=== PATIENT | male | born 1940 | race Asian ===

== ENCOUNTER 2019-04-30 12:23 | Emergency (ER) | payer OTHER ==
[~2019-04-30] VITALS: Ht 167.6 cm; Wt 88.5 kg
[2019-04-30] MEDS ORDERED: TETANUS-DIPTH-ACEL PERTUSSIS 0.5ML SYRG IM ONE (12:30)
[2019-04-30] MEDS ORDERED: HYDROmorphone HCL 2 MG/ML VL ONE (12:59)
[2019-04-30] MEDS ORDERED: ONDANSETRON HCL 4 MG/2 ML VIAL ONE (12:59)
[2019-04-30] MEDS ORDERED: ceFAZolin 1GM/50ML 50 ML IV ONE (13:00)
[2019-04-30] MEDS ORDERED: ONDANSETRON HCL 4 MG/2 ML VIAL IV ONE (13:00)
[2019-04-30] MEDS ORDERED: HYDROmorphone HCL 2 MG/ML VL IV ONE (13:00)
[2019-04-30 14:35] VITALS: BP 160/89
== END 2019-04-30 15:32 | disposition home or self-care (01) ==
LOC: EDBD 12:23 → ER 12:25
DX: S01.01XA Laceration without foreign body of scalp, initial encounter (principal); S51.811A Laceration without foreign body of right forearm, initial encounter; S51.812A Laceration without foreign body of left forearm, initial encounter; I10 Essential (primary) hypertension; E11.9 Type 2 diabetes mellitus without complications; W54.0XXA Bitten by dog, initial encounter; Y93.89 Activity, other specified; Y92.89 Other specified places as the place of occurrence of the external cause; Y99.8 Other external cause status
CPT/HCPCS: 70450; 73090; 90471; 90715; 96365; 96375; 99284; J0690; J1170; J2405

== ENCOUNTER 2022-06-21 14:43 | Inpatient (IN) | payer OTHER, MEDICAID ==
[~2022-06-21] VITALS: Ht 160 cm; Wt 90.0 kg
[2022-06-21 15:42] LABS: Hematocrit 46.5 % (41.0-53.0); Hemoglobin 15.6 g/dL (13.5-17.5); Mean Corpuscular Hgb Conc. 33.6 g/dL (32.0-36.0); Mean Corpuscular Volume 98.1 fL (80.0-100.0); Red Blood Cells 4.74 10^6/uL (4.5-5.90); Red Cell Distribution Width 14.6 % (11.8-14.3); White Blood Cell 19.8 10^3/uL (4.4-10.8)
[2022-06-21 15:51] LABS: Basophils % (manual) 0 (0.0-2.0); Blast Cells 0; Metamyelocytes % 0; Myelocytes % 0; Promyelocytes % 0; Reactive Lymphocytes 0
[2022-06-21 15:53] LABS: Urine Bacteria FEW /hpf (None Seen); Urine Blood 2+ /uL (Negative); Urine Specific Gravity 1.012 (1.001-1.035); Urine WBC 2201 /hpf (0 - 3); Urine WBC Clumps PRESENT /hpf (None Seen)
[2022-06-21 16:08] LABS: Albumin 3.3 g/dL (3.4-5.0); Calcium 8.5 mg/dL (8.5-10.1); Potassium 4.3 mmol/L (3.5-5.1)
[2022-06-21 16:12] LABS: Bilirubin, Total 0.5 mg/dL (0.2-1.0); Total Protein 8.4 g/dL (6.4-8.2)
[2022-06-21] MEDS ORDERED: LACTATED RINGER'S 1,000 ML IV ONE (16:30)
[2022-06-21] MEDS ORDERED: cefTRIAXone 1GM/50ML D5W 50 ML IV ONE (16:30)
[2022-06-21 16:40] LABS: Band Neutrophils % (manual) 4; Eosinophils % (manual) 1 (0-7); Lymphocytes % (manual) 9 (10.0-50.0); Monocytes % (manual) 5 (0-12)
[2022-06-21] MEDS ORDERED: MORPHINE SULFATE INJ 2 MG/ml SYRG IV PRN (18:45)
[2022-06-21] MEDS ORDERED: NITROGLYCERIN 0.4 MG SL TAB SL PRN (18:45)
[2022-06-21] MEDS ORDERED: DEXTROSE (50%) 50ML SYRG IV PRN (18:45)
[2022-06-21 19:32] LABS: Cholesterol 162 mg/dL (< 200); Triglycerides 165 mg/dL (< 150)
[2022-06-21] MEDS: SODIUM CHLORIDE 0.9% 1,000 ML IV SCH (19:35)
[2022-06-21 19:36] LABS: HDL Cholesterol 53 mg/dL (40-59); LDL Cholesterol 85 mg/dL (< 100)
[2022-06-21] MEDS: InsuLIN REG 1unit/0.01ml Soln (100units/ml) SC SCH (22:00)
[2022-06-21] MEDS: ACCU-CHEK COMFORT CURVE STRIP VI SCH (22:18)
[2022-06-21] MEDS: HEPARIN SODIUM (PORCINE) 5000 UNITS/ML 1ML VIAL SC SCH (22:22)
[2022-06-22] MEDS: SODIUM CHLORIDE 0.9% 1,000 ML IV SCH ×3 (02:56→16:26)
[2022-06-22] MEDS: ACCU-CHEK COMFORT CURVE STRIP VI SCH ×4 (06:43→22:14)
[2022-06-22] MEDS: InsuLIN REG 1unit/0.01ml Soln (100units/ml) SC SCH ×4 (06:45→22:00)
[2022-06-22 09:06] LABS: Hematocrit 41.5 % (41.0-53.0); Hemoglobin 14.5 g/dL (13.5-17.5); Mean Corpuscular Hemoglobin 33.3 pg (28.0-32.0); Mean Corpuscular Volume 95.3 fL (80.0-100.0); Red Blood Cells 4.36 10^6/uL (4.5-5.90); Red Cell Distribution Width 14.9 % (11.8-14.3); White Blood Cell 12.9 10^3/uL (4.4-10.8)
[2022-06-22 09:18] LABS: Band Neutrophils % (manual) 0; Basophils % (manual) 0 (0.0-2.0); Blast Cells 0; Eosinophils % (manual) 0 (0-7); Metamyelocytes % 0; Myelocytes % 0; Promyelocytes % 0; Reactive Lymphocytes 0
[2022-06-22 09:19] LABS: Albumin 2.9 g/dL (3.4-5.0); BUN/Creatinine Ratio 18.6; Bilirubin, Total 0.4 mg/dL (0.2-1.0); Calcium 7.9 mg/dL (8.5-10.1); Potassium 4.5 mmol/L (3.5-5.1); Total Protein 7.3 g/dL (6.4-8.2)
[2022-06-22] MEDS: HEPARIN SODIUM (PORCINE) 5000 UNITS/ML 1ML VIAL SC SCH ×2 (09:23→22:17)
[2022-06-22] MEDS: cefTRIAXone 1GM/50ML D5W 50 ML IV SCH (09:25)
[2022-06-22 11:20] LABS: Lymphocytes % (manual) 16 (10.0-50.0); Monocytes % (manual) 7 (0-12)
[2022-06-22] MEDS ORDERED: SENNA 8.6 MG TAB PO PRN (14:30)
[2022-06-22] MEDS ORDERED: SENNA 8.6 MG TAB PO ONE (14:30)
[2022-06-23] VITALS (7 sets, daily range): BP systolic 102–166; BP diastolic 50–65
[2022-06-23] MEDS ORDERED: INSLANTI SC (05:00)
[2022-06-23] MEDS ORDERED: VALS160T82 OR (05:00)
[2022-06-23] MEDS ORDERED: ALLO300T2 PO (05:00)
[2022-06-23] MEDS ORDERED: METO-158 PO (05:00)
[2022-06-23] MEDS ORDERED: AMLO-496 PO (05:00)
[2022-06-23] MEDS ORDERED: PIO30T GT (05:00)
[2022-06-23] MEDS ORDERED: SIMV-13 PO (05:00)
[2022-06-23] MEDS: SODIUM CHLORIDE 0.9% 1,000 ML IV SCH ×2 (05:17→16:59)
[2022-06-23 06:32] LABS: Hematocrit 37.5 % (41.0-53.0); Hemoglobin 12.9 g/dL (13.5-17.5); Mean Corpuscular Hemoglobin 33.2 pg (28.0-32.0); Mean Corpuscular Hgb Conc. 34.3 g/dL (32.0-36.0); Mean Corpuscular Volume 96.8 fL (80.0-100.0); Red Blood Cells 3.87 10^6/uL (4.5-5.90); Red Cell Distribution Width 14.4 % (11.8-14.3); White Blood Cell 13.3 10^3/uL (4.4-10.8)
[2022-06-23 06:47] LABS: Band Neutrophils % (manual) 0; Basophils % (manual) 0 (0.0-2.0); Blast Cells 0; Eosinophils % (manual) 0 (0-7); Metamyelocytes % 0; Myelocytes % 0; Promyelocytes % 0; Reactive Lymphocytes 0
[2022-06-23 06:48] LABS: Anion Gap 7 (5-15); BUN/Creatinine Ratio 18.6; Blood Urea Nitrogen 75 mg/dL (7-18); Calcium 8.4 mg/dL (8.5-10.1); Carbon Dioxide 17 mmol/L (21-32); Chloride 111 mmol/L (98-107); GFR African American 19 mL/min; GFR Non-African American 15 mL/min; Glucose 61 mg/dL (74-106); Potassium 4.6 mmol/L (3.5-5.1); Sodium 135 mmol/L (136-145)
[2022-06-23] MEDS: InsuLIN REG 1unit/0.01ml Soln (100units/ml) SC SCH ×4 (07:00→22:00)
[2022-06-23] MEDS: ACCU-CHEK COMFORT CURVE STRIP VI SCH ×4 (07:03→22:20)
[2022-06-23 08:10] LABS: Lymphocytes % (manual) 10 (10.0-50.0); Monocytes % (manual) 9 (0-12)
[2022-06-23] MEDS: cefTRIAXone 1GM/50ML D5W 50 ML IV SCH (08:41)
[2022-06-23] MEDS: HEPARIN SODIUM (PORCINE) 5000 UNITS/ML 1ML VIAL SC SCH ×2 (08:42→22:27)
[2022-06-23] MEDS ORDERED: METOPROLOL TARTRATE 50 MG TAB PO ONE (12:30)
[2022-06-23] MEDS ORDERED: amLODIPine BESYLATE 5 MG TAB PO ONE (12:30)
[2022-06-23] MEDS ORDERED: VALSARTAN 80 MG TAB PO ONE (12:45)
[2022-06-23] MEDS ORDERED: HCTZ 25 MG TAB PO ONE (12:45)
[2022-06-23] MEDS: METOPROLOL TARTRATE 50 MG TAB PO SCH (22:20)
[2022-06-24 05:10] VITALS: BP 133/64
[2022-06-24] MEDS: ACCU-CHEK COMFORT CURVE STRIP VI SCH ×4 (06:31→21:37)
[2022-06-24] MEDS: InsuLIN REG 1unit/0.01ml Soln (100units/ml) SC SCH ×4 (06:31→21:37)
[2022-06-24 07:28] LABS: BUN/Creatinine Ratio 16.3; Calcium 8.3 mg/dL (8.5-10.1)
[2022-06-24] MEDS: METOPROLOL TARTRATE 50 MG TAB PO SCH ×2 (08:06→21:31)
[2022-06-24] MEDS: cefTRIAXone 1GM/50ML D5W 50 ML IV SCH (08:06)
[2022-06-24] MEDS: amLODIPine BESYLATE 5 MG TAB PO SCH (08:07)
[2022-06-24] MEDS: HEPARIN SODIUM (PORCINE) 5000 UNITS/ML 1ML VIAL SC SCH ×2 (08:13→21:32)
[2022-06-24 09:00] VITALS: BP 149/66
[2022-06-24] MEDS ORDERED: VALSARTAN 80 MG TAB PO SCH (10:00)
[2022-06-24] MEDS ORDERED: HCTZ 25 MG TAB PO SCH (10:00)
[2022-06-24] MEDS ORDERED: LACTULOSE 20Gm/30ML SOLN PO ONE (11:15)
[2022-06-24] MEDS: SODIUM CHLORIDE 0.9% 1,000 ML IV SCH ×2 (11:39→21:37)
[2022-06-24 13:00] VITALS: BP 126/60
[2022-06-24 17:00] VITALS: BP 153/65
[2022-06-24] MEDS: TAMSULOSIN HYDROCHLORIDE 0.4 MG CAP PO SCH (17:03)
[2022-06-24 22:00] VITALS: BP 147/62
[2022-06-25] VITALS (7 sets, daily range): BP systolic 130–157; BP diastolic 51–61
[2022-06-25 05:44] LABS: BUN/Creatinine Ratio 14.2; Calcium 8.8 mg/dL (8.5-10.1)
[2022-06-25] MEDS: ACCU-CHEK COMFORT CURVE STRIP VI SCH ×4 (06:22→21:14)
[2022-06-25] MEDS: InsuLIN REG 1unit/0.01ml Soln (100units/ml) SC SCH ×4 (06:22→21:19)
[2022-06-25] MEDS: cefTRIAXone 1GM/50ML D5W 50 ML IV SCH (10:13)
[2022-06-25] MEDS: SODIUM CHLORIDE 0.9% 1,000 ML IV SCH (10:14)
[2022-06-25] MEDS: METOPROLOL TARTRATE 50 MG TAB PO SCH ×2 (10:14→21:12)
[2022-06-25] MEDS: amLODIPine BESYLATE 5 MG TAB PO SCH (10:14)
[2022-06-25] MEDS: HEPARIN SODIUM (PORCINE) 5000 UNITS/ML 1ML VIAL SC SCH ×2 (10:38→21:20)
[2022-06-25] MEDS ORDERED: ACETAMINOPHEN 325 MG TAB PO PRN (15:15)
[2022-06-25] MEDS ORDERED: MORPHINE SULFATE INJ 2 MG/ml SYRG IV PRN (15:15)
[2022-06-25] MEDS: TAMSULOSIN HYDROCHLORIDE 0.4 MG CAP PO SCH (17:48)
[2022-06-25] MEDS ORDERED: MELATONIN 5 MG TAB PO SCH (22:00)
[2022-06-26] MEDS: SODIUM CHLORIDE 0.9% 1,000 ML IV SCH (00:57)
[2022-06-26 05:00] VITALS: BP 136/63
[2022-06-26 06:03] LABS: BUN/Creatinine Ratio 13.3; Potassium 4.8 mmol/L (3.5-5.1)
[2022-06-26] MEDS: ACCU-CHEK COMFORT CURVE STRIP VI SCH (06:13)
[2022-06-26] MEDS: InsuLIN REG 1unit/0.01ml Soln (100units/ml) SC SCH (06:20)
[2022-06-26 09:00] VITALS: BP 133/67
[2022-06-26] MEDS: cefTRIAXone 1GM/50ML D5W 50 ML IV SCH (09:17)
[2022-06-26] MEDS: amLODIPine BESYLATE 5 MG TAB PO SCH (09:20)
[2022-06-26] MEDS: METOPROLOL TARTRATE 50 MG TAB PO SCH (09:20)
[2022-06-26] MEDS: HEPARIN SODIUM (PORCINE) 5000 UNITS/ML 1ML VIAL SC SCH (09:37)
[2022-06-26 11:12] VITALS: BP 133/67
[2022-06-26 13:00] VITALS: BP 136/68
== END 2022-06-26 13:30 | disposition home or self-care (01) | DRG 683 ==
LOC: ER 14:43 → TELE 18:38 → TELE-CENTR 06-22 23:52
PROVIDERS: ADMIT Registered Nurse; ATTEND Internal Medicine Pulmonary Disease
DX: N17.9 Acute kidney failure, unspecified (principal); E87.1 Hypo-osmolality and hyponatremia; N39.0 Urinary tract infection, site not specified; N13.9 Obstructive and reflux uropathy, unspecified; E11.9 Type 2 diabetes mellitus without complications; N28.1 Cyst of kidney, acquired; M47.816 Spondylosis without myelopathy or radiculopathy, lumbar region; K57.10 Diverticulosis of small intestine without perforation or abscess without bleeding; E78.5 Hyperlipidemia, unspecified; E66.01 Morbid (severe) obesity due to excess calories; K59.00 Constipation, unspecified; Z20.822 Contact with and (suspected) exposure to COVID-19; I10 Essential (primary) hypertension; Z68.35 Body mass index [BMI] 35.0-35.9, adult; Z90.49 Acquired absence of other specified parts of digestive tract; Z83.3 Family history of diabetes mellitus; Z79.4 Long term (current) use of insulin; Z79.899 Other long term (current) drug therapy
CPT/HCPCS: 36415; 36600; 71046; 74176; 76775; 80048; 80053; 80061; 81001; 82570; 82805; 82962; 83036; 83605; 84156; 84300; 84443; 84484; 85007; 85027; 87040; 87086; 87088; 87186; 87426; 93005; 93306; 96365; 97110; 97116; 97163; 97530; G0378; J0696; J1815

== ENCOUNTER 2022-07-02 13:46 | Emergency (ER) | payer OTHER, MEDICAID ==
[~2022-07-02] VITALS: Ht 160 cm; Wt 81.8 kg
[~2022-07-02 13:46] MED LIST: ALLO300T2 PO; AMLO-496 PO; INSLANTI SC; METO-158 PO; PIO30T GT; SIMV-13 PO
[2022-07-02 14:39] VITALS: BP 107/68
== END 2022-07-02 15:30 | disposition home or self-care (01) ==
LOC: ER 13:46
DX: Z46.6 Encounter for fitting and adjustment of urinary device (principal); N19 Unspecified kidney failure; I10 Essential (primary) hypertension; E11.9 Type 2 diabetes mellitus without complications; Z90.49 Acquired absence of other specified parts of digestive tract; Z79.4 Long term (current) use of insulin; Z79.899 Other long term (current) drug therapy

== ENCOUNTER 2022-07-19 10:12 | Inpatient (IN) | payer OTHER, MEDICAID ==
[~2022-07-19] VITALS: Ht 160 cm; Wt 82.0 kg
[2022-07-19 11:16] LABS: Basophils # (auto) 0.2 10 ^3/uL (0-0.2); Basophils % (auto) 1.2 % (0.0-2.0); Eosinophils # (auto) 0.2 10 ^3/uL (0-0.8); Eosinophils % (auto) 1.4 % (0.0-7.0); Hematocrit 37.5 % (41.0-53.0); Hemoglobin 12.7 g/dL (13.5-17.5); Lymphocytes % (auto) 13.4 % (10.0-50.0); Mean Corpuscular Hemoglobin 32.4 pg (28.0-32.0); Mean Corpuscular Hgb Conc. 33.9 g/dL (32.0-36.0); Mean Corpuscular Volume 95.8 fL (80.0-100.0); Monocytes # (auto) 1.3 10 ^3/uL (0-1.3); Monocytes % (auto) 9.1 % (0.0-12.0); Neutrophils # (auto) 10.9 10 ^3/uL (1.6-8.6); Neutrophils % (auto) 74.9 % (37.0-80.0); Nucleated Red Blood Cells % 0.1 %; Red Blood Cells 3.92 10^6/uL (4.5-5.90); Red Cell Distribution Width 14.9 % (11.8-14.3); White Blood Cell 14.6 10^3/uL (4.4-10.8)
[2022-07-19 11:24] LABS: Urine Bacteria FEW /hpf (None Seen); Urine Blood 1+ /uL (Negative); Urine Specific Gravity 1.011 (1.001-1.035); Urine WBC 1080 /hpf (0 - 3); Urine WBC Clumps PRESENT /hpf (None Seen)
[2022-07-19 11:49] LABS: Albumin 3.5 g/dL (3.4-5.0); Potassium 4.9 mmol/L (3.5-5.1)
[2022-07-19 11:53] LABS: BUN/Creatinine Ratio 10.5 (10.0-20.0); Bilirubin, Total 0.5 mg/dL (0.2-1.0); Total Protein 8.6 g/dL (6.4-8.2)
[2022-07-19] MEDS ORDERED: cefTRIAXone 1GM/50ML D5W 50 ML IV ONE (12:00)
[2022-07-19] MEDS ORDERED: SODIUM CHLORIDE 0.9% 500 ML IV ONE (13:45)
[2022-07-19] MEDS ORDERED: ACETAMINOPHEN 325 MG TAB PO PRN (16:45)
[2022-07-19] MEDS ORDERED: NITROGLYCERIN 0.4 MG SL TAB SL PRN (16:45)
[2022-07-19] MEDS ORDERED: ONDANSETRON HCL 4 MG/2 ML VIAL IV PRN (16:45)
[2022-07-19] MEDS ORDERED: DOCUSATE SOD 100 MG CAP PO PRN (16:45)
[2022-07-19] MEDS ORDERED: HYDROcodone-ACET 5/325MG TAB PO PRN (16:45)
[2022-07-19] MEDS ORDERED: DEXTROSE (50%) 50ML SYRG IV PRN (16:45)
[2022-07-19] MEDS: ACCU-CHEK COMFORT CURVE STRIP VI SCH ×2 (17:41→22:22)
[2022-07-19] MEDS: InsuLIN REG 1unit/0.01ml Soln (100units/ml) SC SCH ×2 (17:41→22:22)
[2022-07-19] MEDS ORDERED: MORPHINE SULFATE INJ 2 MG/ml SYRG IV PRN (19:00)
[2022-07-19] MEDS: MORPHINE SULFATE INJ 2 MG/ml SYRG IV PRN (19:05)
[2022-07-19] MEDS: SODIUM CHLORIDE 0.9% 1,000 ML IV SCH (21:20)
[2022-07-19] MEDS: ATORVASTATIN 20 MG TAB PO SCH (22:05)
[2022-07-19] MEDS: METOPROLOL TARTRATE 50 MG TAB PO SCH (22:13)
[2022-07-20 05:23] LABS: Basophils # (auto) 0.1 10 ^3/uL (0-0.2); Basophils % (auto) 1.2 % (0.0-2.0); Eosinophils # (auto) 0.2 10 ^3/uL (0-0.8); Eosinophils % (auto) 1.7 % (0.0-7.0); Hematocrit 33.4 % (41.0-53.0); Hemoglobin 11.3 g/dL (13.5-17.5); Lymphocytes # (auto) 2.6 10 ^3/uL (0.4-5.4); Lymphocytes % (auto) 20.1 % (10.0-50.0); Mean Corpuscular Hemoglobin 32.3 pg (28.0-32.0); Mean Corpuscular Hgb Conc. 33.9 g/dL (32.0-36.0); Mean Corpuscular Volume 95.1 fL (80.0-100.0); Monocytes # (auto) 1.6 10 ^3/uL (0-1.3); Monocytes % (auto) 12.6 % (0.0-12.0); Neutrophils # (auto) 8.3 10 ^3/uL (1.6-8.6); Neutrophils % (auto) 64.4 % (37.0-80.0); Nucleated Red Blood Cells % 0.1 %; Red Blood Cells 3.51 10^6/uL (4.5-5.90); Red Cell Distribution Width 14.8 % (11.8-14.3); White Blood Cell 12.8 10^3/uL (4.4-10.8)
[2022-07-20 05:47] LABS: Albumin 3.1 g/dL (3.4-5.0); Calcium 8.9 mg/dL (8.5-10.1); Potassium 4.7 mmol/L (3.5-5.1)
[2022-07-20 05:52] LABS: BUN/Creatinine Ratio 10.7 (10.0-20.0); Bilirubin, Total 0.5 mg/dL (0.2-1.0); Total Protein 7.8 g/dL (6.4-8.2)
[2022-07-20] MEDS: InsuLIN REG 1unit/0.01ml Soln (100units/ml) SC SCH ×4 (07:00→22:00)
[2022-07-20] MEDS: ACCU-CHEK COMFORT CURVE STRIP VI SCH ×4 (07:26→22:34)
[2022-07-20] MEDS: MORPHINE SULFATE INJ 2 MG/ml SYRG IV PRN (08:20)
[2022-07-20] MEDS: cefTRIAXone 1GM/50ML D5W 50 ML IV SCH (09:03)
[2022-07-20] MEDS ORDERED: PANTOPRAZOLE 40 MG/10 ML VIAL INJ IV SCH (10:00)
[2022-07-20] MEDS ORDERED: PIOGLITAZONE HYDROCHLORIDE 30 MG TAB PO SCH (10:00)
[2022-07-20] MEDS: METOPROLOL TARTRATE 50 MG TAB PO SCH ×2 (10:02→22:34)
[2022-07-20] MEDS: ALLOPURINOL 300 MG TAB PO SCH (10:03)
[2022-07-20] MEDS: amLODIPine BESYLATE 5 MG TAB PO SCH (10:03)
[2022-07-20] MEDS: SODIUM CHLORIDE 0.9% 1,000 ML IV SCH (13:30)
[2022-07-20] MEDS ORDERED: TAMSULOSIN HYDROCHLORIDE 0.4 MG CAP PO SCH (18:00)
[2022-07-20 22:22] VITALS: BP 113/53
[2022-07-20] MEDS: ATORVASTATIN 20 MG TAB PO SCH (22:34)
[2022-07-21 01:20] LABS: Hepatitis B Surface Antibody Positive (Negative)
[2022-07-21 05:00] VITALS: BP 106/42
[2022-07-21] MEDS: SODIUM CHLORIDE 0.9% 1,000 ML IV SCH (05:24)
[2022-07-21] MEDS: ACCU-CHEK COMFORT CURVE STRIP VI SCH ×2 (06:16→12:11)
[2022-07-21] MEDS: InsuLIN REG 1unit/0.01ml Soln (100units/ml) SC SCH ×2 (06:19→12:13)
[2022-07-21 07:10] LABS: Basophils # (auto) 0.1 10 ^3/uL (0-0.2); Basophils % (auto) 0.8 % (0.0-2.0); Eosinophils # (auto) 0.4 10 ^3/uL (0-0.8); Hematocrit 31.4 % (41.0-53.0); Hemoglobin 11.1 g/dL (13.5-17.5); Lymphocytes # (auto) 1.9 10 ^3/uL (0.4-5.4); Lymphocytes % (auto) 17.7 % (10.0-50.0); Mean Corpuscular Hgb Conc. 35.2 g/dL (32.0-36.0); Mean Corpuscular Volume 93.8 fL (80.0-100.0); Monocytes # (auto) 1.2 10 ^3/uL (0-1.3); Neutrophils # (auto) 7.1 10 ^3/uL (1.6-8.6); Neutrophils % (auto) 66.5 % (37.0-80.0); Red Blood Cells 3.35 10^6/uL (4.5-5.90); Red Cell Distribution Width 14.7 % (11.8-14.3); White Blood Cell 10.7 10^3/uL (4.4-10.8)
[2022-07-21 07:15] LABS: BUN/Creatinine Ratio 10.9 (10.0-20.0); Calcium 8.7 mg/dL (8.5-10.1); Magnesium 2.3 mg/dL (1.6-2.6); Phosphorus 4.1 mg/dL (2.5-4.90)
[2022-07-21 08:00] VITALS: BP 119/56
[2022-07-21 08:29] VITALS: BP 119/56
[2022-07-21] MEDS: cefTRIAXone 1GM/50ML D5W 50 ML IV SCH (08:54)
[2022-07-21] MEDS: ALLOPURINOL 300 MG TAB PO SCH (08:54)
[2022-07-21] MEDS: METOPROLOL TARTRATE 50 MG TAB PO SCH (08:55)
[2022-07-21] MEDS: amLODIPine BESYLATE 5 MG TAB PO SCH (08:55)
[2022-07-21 12:43] VITALS: BP 114/52
[2022-07-21] MEDS ORDERED: CIPR-173 PO (14:15)
[2022-07-21] MEDS ORDERED: TAM04C PO (14:15)
[2022-07-21 15:03] VITALS: BP 114/52
== END 2022-07-21 16:29 | disposition home or self-care (01) | DRG 690 ==
LOC: ER 10:12 → TELE 16:51 → TELE-WESTW 07-20 20:32
PROVIDERS: ADMIT Nurse Practitioner Family; ATTEND Internal Medicine
DX: N10 Acute pyelonephritis (principal); E87.1 Hypo-osmolality and hyponatremia; I12.9 Hypertensive chronic kidney disease with stage 1 through stage 4 chronic kidney disease, or unspecified chronic kidney disease; N18.4 Chronic kidney disease, stage 4 (severe); R33.9 Retention of urine, unspecified; E11.22 Type 2 diabetes mellitus with diabetic chronic kidney disease; M19.90 Unspecified osteoarthritis, unspecified site; Z20.822 Contact with and (suspected) exposure to COVID-19; N40.0 Benign prostatic hyperplasia without lower urinary tract symptoms; N28.1 Cyst of kidney, acquired; Z79.4 Long term (current) use of insulin; Z79.899 Other long term (current) drug therapy; Z90.49 Acquired absence of other specified parts of digestive tract; Z83.3 Family history of diabetes mellitus; Z87.440 Personal history of urinary (tract) infections; R21 Rash and other nonspecific skin eruption; N17.0 Acute kidney failure with tubular necrosis
CPT/HCPCS: 36415; 76775; 80048; 80053; 81001; 82306; 82962; 83605; 83735; 83880; 84100; 85025; 86703; 86706; 86803; 87040; 87081; 87086; 87088; 87186; 87340; 87426; C9113; G0378; J0696; J1815; J2405

== ENCOUNTER 2024-07-26 03:28 | Inpatient (IN) | payer OTHER, MEDICAID ==
[~2024-07-26] VITALS: Ht 160 cm; Wt 84.6 kg
[~2024-07-26 03:28] MED LIST changes: -AMLO-496 PO; +AMLO1TAB23 PO; +CIPR-173 PO; -SIMV-13 PO; +SIMV40TA18 PO; +TAMS-35 PO
--- NOTE | 2024-07-26 03:47 | ED.PDOC ---
GI ASSESSMENT HPI Comments 83-year-old male brought in by EMS presents with a chief complaint of abdominal pain. Patient states that his abdomen pain is localized diffusely, radiates to his back, and down to his rectum. Patient mentions that his pain is sharp in sensation, rates his pain a 8/10. Patient denies any nausea, vomiting, or diarrhea. Patient recently had a colonoscopy and it was "abnormal", awaiting further testing at this time. Chief Complaint: Abdominal Pain Time Seen by MD: 03:36 Primary Care Provider: BRAN Andujar Notes: Medications, Allergies Allergies: Coded Allergies: NO KNOWN ALLERGIES (Unverified , 04/30/19) Home Meds Active Scripts Ciprofloxacin Hcl (Cipro) 500 Mg Tab, 1 TAB PO BID, #14 TAB Prov:PHILLIP SCHWARZ MD 07/21/22 Tamsulosin Hcl (Flomax) 0.4 Mg Cap, 0.4 MG PO QPM for 30 Days, #30 CAP Prov:PHILLIP SCHWARZ MD 07/21/22 Reported Medications Insulin Glargine (Lantus) 100 Unit/Ml Inj, 100 UNIT SC DAILY, INJ 06/23/22 Simvastatin (Simvastatin) 40 Mg Tab, 40 MG PO DAILY for 30 Days 06/23/22 Amlodipine Besylate (Amlodipine Besylate) 10 Mg Tab, 1 TAB PO DAILY, #30 TAB 5 Refills 06/23/22 Pioglitazone Hydrochloride (ACTOS TABLET) 30 Mg Tb, 30 MG GT DAILY, TAB 06/23/22 Allopurinol (Allopurinol) 300 Mg Tab, 300 MG PO DAILY, TAB 06/23/22 Metoprolol Tartrate (Metoprolol Tartrate) 50 Mg Tab, 50 MG PO BID for 30 Days, MG 06/23/22 Information Source: Patient, Emergency Med Personnel Mode of Arrival: EMS Timing: Weeks Duration: Since onset Prehospital treatment: 12 Lead EKG, Accucheck, Buffet Manager Quality: Sharp Vomitus: None Stool: Normal Severity: Moderate Recent: None Recent Hx of: None Pain Location: Diffuse Associated sign and symptoms: Abdominal Pain Vital Signs Vital Signs Date Time Temp Pulse Resp B/P (MAP) Pulse Ox O2 Delivery O2 Flow Rate FiO2 07/26/24 06:48 63 12 127/56 07/26/24 05:25 97.5 100 97.5 07/26/24 05:25 Room Air* 0 21 Physical Exam General: Awake, alert and oriented. No acute distress. Skin: Skin in warm, dry and intact. Appropriate color for ethnicity. HEENT: The head is normocephalic and atraumatic. Conjunctivae are clear without exudates or hemorrhage. Sclera is non-icteric. EOM are intact. No signs of nystagmus. Eyelids are normal in appearance without swelling or lesions. Oral mucosa is pink and moist Neck: The neck is supple with normal range of motion. No JVD. Cardiac: Heart rate and rhythm are normal. No murmurs, gallops, or rubs are auscultated. Respiratory: No signs of respiratory distress. Lung sounds are clear in all lobes bilaterally without rales, ronchi, or wheezes. Abdominal: Abdomen is soft, right flank tenderness with distention. Bowel sounds are present and normoactive in all four quadrants. Extremities: Upper and lower extremities are atraumatic in appearance without deformity or edema. Neurological: The patient is awake, alert and oriented to person, place, and time with normal speech. Speech is clear. There is no facial asymmetry. Psychiatric: Appropriate mood and affect. Good judgement and insight. Review of Systems: REVIEW OF SYSTEMS: No fever, no chills, or fatigue HEENT: No sore throat, no earache, no congestion, no neck pain. Cardiac: No chest pain. No palpitations. Lungs: No shortness of breath, no cough. GI: No nausea, no vomiting, no diarrhea, positive constipation, positive abdominal pain : No dysuria, frequency, or urgency. No hematuria. Musculoskeletal: Positive back pain Skin: No rash, no itching. Neuro: No headache, no dizziness, no weakness Past Medical History PAST MEDICAL HISTORY: Arthritis, CKF, DM, HTN, UTI'S Surgical History: Cholecystectomy, Hernia Repair Family History Family History: Family hx of DM Social History Smoker: Non-Smoker Alcohol: Denies ETOH Use Drugs: Denies Drug Use Lives In: Home Was a procedure done? Was a procedure done?: No GI differential Dx Differential Diagnosis: Other Other Differential Diagnosis Differential diagnoses considered include: Abdominal aortic aneurysm, [place], esophageal rupture, intestinal obstruction, mesenteric ischemia, perforated viscus or solid organ rupture, CHF with hepatomegaly, pneumonia, abscess, appendicitis, biliary disease, diverticulitis, gastritis, gastroenteritis, hepatitis, hernia, inflammatory bowel disease, pancreatitis, peptic ulcer disease, urinary tract infection, ureteral colic, constipation, GERD, irritable syndrome, abdominal wall pain, nonspecific abdominal pain, herpes zoster. X-Ray, Labs, Meds, VS Vital Signs Date Time Temp Pulse Resp B/P (MAP) Pulse Ox O2 Delivery O2 Flow Rate FiO2 07/26/24 06:48 63 12 127/56 07/26/24 05:29 65 12 132/61 07/26/24 05:25 97.5 65 12 132/61 (84) 100 97.5 07/26/24 05:25 65 12 100 Room Air* 0 21 07/26/24 03:35 98.6 73 16 133/61 (85) 95 98.6 Lab Test 07/26/24 04:15 Range/Units White Blood Count 8.6 4.4-10.8 10^3/uL Red Blood Count 3.70 L 4.5-5.90 10^6/uL Hemoglobin 11.8 L 13.5-17.5 g/dL Hematocrit 35.8 L 41.0-53.0 % Mean Corpuscular Volume 96.6 80.0-100.0 fL Mean Corpuscular Hemoglobin 31.9 28.0-32.0 pg Mean Corpuscular Hemoglobin Concent 33.0 32.0-36.0 g/dL Red Cell Distribution Width 16.0 H 11.8-14.3 % Platelet Count 273 140-450 10^3/uL Mean Platelet Volume 7.4 6.9-10.8 fL Neutrophils (%) (Auto) 50.3 37.0-80.0 % Lymphocytes (%) (Auto) 32.6 10.0-50.0 % Monocytes (%) (Auto) 10.7 0.0-12.0 % Eosinophils (%) (Auto) 5.5 0.0-7.0 % Basophils (%) (Auto) 0.9 0.0-2.0 % Neutrophils # (Auto) 4.3 1.6-8.6 10 ^3/uL Lymphocytes # (Auto) 2.8 0.4-5.4 10 ^3/uL Monocytes # (Auto) 0.9 0-1.3 10 ^3/uL Eosinophils # (Auto) 0.5 0-0.8 10 ^3/uL Basophils # (Auto) 0.1 0-0.2 10 ^3/uL Nucleated Red Blood Cells 0.1 % Sodium Level 130 L 136-145 mmol/L Potassium Level 3.9 3.5-5.1 mmol/L Chloride Level 96 L 98-107 mmol/L Carbon Dioxide Level 24 20-31 mmol/L Anion Gap 10 5-15 Blood Urea Nitrogen 52 H 9-23 mg/dL Creatinine 3.85 H 0.700-1.30 mg/dL Glomerular Filtration Rate Calc 15 >90 mL/min BUN/Creatinine Ratio 13.5 10.0-20.0 Serum Glucose 91 74-106 mg/dL Lactic Acid Level 1.3 0.4-2.0 mmol/L Calcium Level 9.9 8.7-10.4 mg/dL Total Bilirubin 0.4 0.2-1.0 mg/dL Aspartate Amino Transferase (AST) 14 13-40 U/L Alanine Aminotransferase (ALT) < 9 7-40 U/L Alkaline Phosphatase 79 46-116 U/L B-Type Natriuretic Peptide 31.11 0-100 pg/mL Total Protein 7.9 5.7-8.2 g/dL Albumin 4.2 3.2-4.8 g/dL Lipase 73 H 12-53 U/L Current Medications Medications (Trade) Dose Ordered Sig/Joe Route Start Time Stop Time Status Last Admin Morphine Sulfate 2 mg ONCE ONCE IV 07/26/24 03:45 07/26/24 03:46 DC 07/26/24 05:29 Sodium Chloride 1,000 ml @ 130 mls/hr [id number] ONCE IV 07/26/24 06:00 07/26/24 13:41 07/26/24 06:31 EXAM: XY CHEST XRAY 1 VIEW HISTORY: SOB COMPARISON: XY CHEST XRAY 1 VIEW on DOS: 07/26/24 TECHNIQUE: Portable upright AP view of the chest was performed. FINDINGS: There is cardiomegaly with interstitial pulmonary edema, increased versus that seen on the previous chest x-ray. No pneumothorax or consolidative infiltrates. There are degenerative changes of the thoracic spine and bilateral shoulders. IMPRESSION: Cardiomegaly with interstitial pulmonary edema consistent with CHF exacerbation. : CT Abdomen and Pelvis Without Intravenous Contrast CLINICAL INDICATION: Right flank pain, abdominal distention, constipation TECHNIQUE: Axial computed tomography images of the abdomen and pelvis without intravenous contrast. This CT exam was performed using one or more of the following dose reduction techniques: automated exposure control, adjustment of the mA and/or kV according to patient size, and/or use of iterative reconstruction technique. CONTRAST: COMPARISON: CT CT AB PEL WO CON-NO ORAL OR IV on DOS: 06/21/22 FINDINGS: LUNG BASES: Unremarkable. No mass. No consolidation. MEDIASTINUM: Small esophageal hiatal hernia. ABDOMEN: LIVER: 4.4 cm simple hepatic cyst. GALLBLADDER AND BILE DUCTS: Gallbladder is surgically absent. No ductal dilation. PANCREAS: Unremarkable. No ductal dilation. SPLEEN: Unremarkable. No splenomegaly. ADRENALS: Unremarkable. No mass. KIDNEYS AND URETERS: Apparent striated enhancement of the kidneys, bilaterally concerning for pyelonephritis. Clinical correlation is recommended. Punctate right nephrolithiasis without hydronephrosis. Bilateral renal cysts. STOMACH AND BOWEL: Unremarkable. No obstruction. No mucosal thickening. PELVIS: APPENDIX: No findings to suggest acute appendicitis. BLADDER: Bladder wall thickening which may be due to the decompressed state of the bladder or due to cystitis. No stones. REPRODUCTIVE: Unremarkable as visualized. ABDOMEN and PELVIS: INTRAPERITONEAL SPACE: Unremarkable. No free air. No significant fluid collection. BONES/JOINTS: No acute fracture. No dislocation. SOFT TISSUES: Umbilical hernia containing fat. Left inguinal hernia. VASCULATURE: Scattered calcified atherosclerotic disease of aorta. No abdominal aortic aneurysm. LYMPH NODES: Unremarkable. No enlarged lymph nodes. OTHER FINDINGS: . IMPRESSION: 1. Apparent striated enhancement of the kidneys, bilaterally concerning for pyelonephritis. Clinical correlation is recommended. 2. Bladder wall thickening which may be due to the decompressed state of the bladder or due to cystitis. 3. Small esophageal hiatal hernia. 4. Umbilical hernia containing fat. 5. Left inguinal hernia. Patient alert. Complaining of abdominal pain. Kidney function elevated. Vitals stable. Lipase elevated. Establish intravenous access. Was given fluids. Was given pain medication. WBC within normal limits. Continues to have abdominal pain. Possible colitis. Chest x-ray reviewed does shows CHF. Will be careful giving Lasix. CT scan of the abdomen does show possible pyelonephritis. Was given Rocephin. Was given Flagyl. Explained to the patient. Continue monitoring. Time of Reevaluation: 04:06 Reevaluation 1ST: Unchanged Patient Education/Counseling: Need For Follow Up Family Education/Counseling: No Family Present Departure 1 Departure Time of Disposition: 07:16 Impression: Primary Impression: CHF exacerbation Qualified Codes: I50.43 - Acute on chronic combined systolic (congestive) and diastolic (congestive) heart failure Additional Impressions: Acute pancreatitis Qualified Codes: K85.90 - Acute pancreatitis without necrosis or infection, unspecified Complicated UTI (urinary tract infection) Disposition: ADMITTED INPATIENT Admit to: Med Surg Condition: Guarded Critical Care Note Critical Care Time?: No Stability Stability form required: No Heart Score Heart Score: Heart Score Response (Comments) Value History N/A 0 EKG N/A 0 Age N/A 0 Risk Factors N/A 0 Troponin N/A 0 Total 0 I personally scribed for SAKINA COREAS MD ([email or web address]) on 07/26/24 at 03:47. Electronically submitted by Kenrick Thakkar ([email or web address]). I personally scribed for DARRYL GALLOWAY MD ([email or web address]) on 07/26/24 at 07:37. Electronically submitted by Gilbert Villa ([email or web address]). SAKINA COREAS MD Jul 26, 2024 03:47 DARRYL GALLOWAY MD Jul 26, 2024 07:17
[2024-07-26 04:34] LABS: Basophils # (auto) 0.1 10 ^3/uL (0-0.2); Basophils % (auto) 0.9 % (0.0-2.0); Eosinophils # (auto) 0.5 10 ^3/uL (0-0.8); Eosinophils % (auto) 5.5 % (0.0-7.0); Hematocrit 35.8 % (41.0-53.0); Hemoglobin 11.8 g/dL (13.5-17.5); Lymphocytes # (auto) 2.8 10 ^3/uL (0.4-5.4); Lymphocytes % (auto) 32.6 % (10.0-50.0); Mean Corpuscular Hemoglobin 31.9 pg (28.0-32.0); Mean Corpuscular Volume 96.6 fL (80.0-100.0); Monocytes # (auto) 0.9 10 ^3/uL (0-1.3); Monocytes % (auto) 10.7 % (0.0-12.0); Neutrophils # (auto) 4.3 10 ^3/uL (1.6-8.6); Neutrophils % (auto) 50.3 % (37.0-80.0); Nucleated Red Blood Cells % 0.1 %; Platelet Count (auto) 273 10^3/uL (140-450); White Blood Cell 8.6 10^3/uL (4.4-10.8)
[2024-07-26] MEDS: IOHEXOL 350 MG/ML 100ML IJ ONE (04:49)
[2024-07-26 04:55] LABS: Albumin 4.2 g/dL (3.2-4.8); Alkaline Phosphatase 79 U/L (46-116); Anion Gap 10 (5-15); Aspartate Aminotransferase 14 U/L (13-40); BUN/Creatinine Ratio 13.5 (10.0-20.0); Calcium 9.9 mg/dL (8.7-10.4); Carbon Dioxide 24 mmol/L (20-31); Glucose 91 mg/dL (74-106); Potassium 3.9 mmol/L (3.5-5.1); Total Protein 7.9 g/dL (5.7-8.2)
[2024-07-26 04:56] LABS: Bilirubin, Total 0.4 mg/dL (0.2-1.0)
[2024-07-26 05:00] LABS: Alanine Aminotransferase < 9 U/L (7-40); Blood Urea Nitrogen 52 mg/dL (9-23); Chloride 96 mmol/L (98-107); Lipase 73 U/L (12-53); Sodium 130 mmol/L (136-145)
[2024-07-26 05:25] VITALS: PULSE 65; RESP 12; O2SAT 100
[2024-07-26] MEDS: MORPHINE SULFATE INJ 2 MG/ml SYRG IV ONE (05:29)
--- NOTE | 2024-07-26 06:05 | DVH ---
EXAM: XY CHEST XRAY 1 VIEW HISTORY: SOB COMPARISON: XY CHEST XRAY 1 VIEW on DOS: 07/26/24 TECHNIQUE: Portable upright AP view of the chest was performed. FINDINGS: There is cardiomegaly with interstitial pulmonary edema, increased versus that seen on the previous c hest x-ray. No pneumothorax or consolidative infiltrates. There are degenerative changes of the thora cic spine and bilateral shoulders. IMPRESSION: Cardiomegaly with interstitial pulmonary edema consistent with CHF exacerbation.
--- NOTE | 2024-07-26 06:08 | DVH ---
EXAM: CT Abdomen and Pelvis Without Intravenous Contrast CLINICAL INDICATION: Right flank pain, abdominal distention, constipation TECHNIQUE: Axial computed tomography images of the abdomen and pelvis without intravenous contrast. This CT exam was performed using one or more of the following dose reduction techniques: automated exposure control, adjustment of the mA and/or kV according to patient size, and/or use of iterative r econstruction technique. CONTRAST: COMPARISON: CT CT AB PEL WO CON-NO ORAL OR IV on DOS: 06/21/22 FINDINGS: LUNG BASES: Unremarkable. No mass. No consolidation. MEDIASTINUM: Small esophageal hiatal hernia. ABDOMEN: LIVER: 4.4 cm simple hepatic cyst. GALLBLADDER AND BILE DUCTS: Gallbladder is surgically absent. No ductal dilation. PANCREAS: Unremarkable. No ductal dilation. SPLEEN: Unremarkable. No splenomegaly. ADRENALS: Unremarkable. No mass. KIDNEYS AND URETERS: Apparent striated enhancement of the kidneys, bilaterally concerning for pyelo nephritis. Clinical correlation is recommended. Punctate right nephrolithiasis without hydronephrosi s. Bilateral renal cysts. STOMACH AND BOWEL: Unremarkable. No obstruction. No mucosal thickening. PELVIS: APPENDIX: No findings to suggest acute appendicitis. BLADDER: Bladder wall thickening which may be due to the decompressed state of the bladder or due t o cystitis. No stones. REPRODUCTIVE: Unremarkable as visualized. ABDOMEN and PELVIS: INTRAPERITONEAL SPACE: Unremarkable. No free air. No significant fluid collection. BONES/JOINTS: No acute fracture. No dislocation. SOFT TISSUES: Umbilical hernia containing fat. Left inguinal hernia. VASCULATURE: Scattered calcified atherosclerotic disease of aorta. No abdominal aortic aneurysm. LYMPH NODES: Unremarkable. No enlarged lymph nodes. OTHER FINDINGS: . IMPRESSION: 1. Apparent striated enhancement of the kidneys, bilaterally concerning for pyelonephritis. Clinical correlation is recommended. 2. Bladder wall thickening which may be due to the decompressed state of the bladder or due to cysti tis. 3. Small esophageal hiatal hernia. 4. Umbilical hernia containing fat. 5. Left inguinal hernia.
[2024-07-26] MEDS: SODIUM CHLORIDE 0.9% 1,000 ML IV ONE (06:31)
--- NOTE | 2024-07-26 08:13 | DVHHP2 ---
History of Present Illness Reason for Visit: Abdominal pain History of Present Illness Camden Arriaga is an 83-year-old male with past medical history of hypertension, diabetes type 2, CKD, arthritis, frequent UTIs, osteoarthritis, cholecystectomy, and hernia repair who presents to the ED with abdominal pain and weakness. Clare at bedside with Cinthya daughter as well. Family reported that patient has not been walking for the last 2 years due to his arthritis. Also that patient followed up with his PCP 4 months ago and has been having urinary incontinence in his currently in diapers because he is unable to determine when he is voiding. Patient also complaining of right-sided flank pain. Abdomen is soft and distended. Patient denies any chest pain, shortness of breath, fever, chills, nausea, vomiting, diarrhea, hematuria, frequency, recent travels, recent ingestion of spoiled food, recent injury or trauma, lightheadedness, or dizziness. Family also reports that patient has been using a wheelchair and not walking. Cardiovascular: HTN Renal/: UTI Endocrine: Diabetes Past Medical History Osteoarthritis Arthritis Past Surgical History: Cholecystectomy, Hernia Repair Smoke: No ALCOHOL: none Drugs: None Domestic Violence: Neg Review of Systems Constitutional: Yes: Weakness Gastrointestinal: Abdominal Pain, Other (Right-sided flank pain) Allergies: Coded Allergies: NO KNOWN ALLERGIES (Unverified , 04/30/19) Exam Vital Signs Vital Signs Date Time Temp Pulse Resp B/P (MAP) Pulse Ox O2 Delivery O2 Flow Rate FiO2 07/26/24 06:48 63 12 127/56 07/26/24 05:25 97.5 100 97.5 07/26/24 05:25 Room Air* 0 21 General Appearance: Alert, Oriented X3, Cooperative, No acute distress HEENT: Atraumatic, PERRLA, EOMI, Mucous membr. moist/pink Respiratory: Clear to auscultation, Normal air movement Cardiovascular: Regular rate, Normal S1, Normal S2, No murmurs Abdominal: Soft Extremities: No clubbing, No cyanosis, No edema, Normal pulses, No tenderness/swelling Skin: No significant lesion Neuro: Normal speech, Normal tone, Sensation intact Psych/Mental Status: Mental status NL Labs/Xrays Labs Test 07/26/24 04:15 Range/Units White Blood Count 8.6 4.4-10.8 10^3/uL Red Blood Count 3.70 L 4.5-5.90 10^6/uL Hemoglobin 11.8 L 13.5-17.5 g/dL Hematocrit 35.8 L 41.0-53.0 % Mean Corpuscular Volume 96.6 80.0-100.0 fL Mean Corpuscular Hemoglobin 31.9 28.0-32.0 pg Mean Corpuscular Hemoglobin Concent 33.0 32.0-36.0 g/dL Red Cell Distribution Width 16.0 H 11.8-14.3 % Platelet Count 273 140-450 10^3/uL Mean Platelet Volume 7.4 6.9-10.8 fL Neutrophils (%) (Auto) 50.3 37.0-80.0 % Lymphocytes (%) (Auto) 32.6 10.0-50.0 % Monocytes (%) (Auto) 10.7 0.0-12.0 % Eosinophils (%) (Auto) 5.5 0.0-7.0 % Basophils (%) (Auto) 0.9 0.0-2.0 % Neutrophils # (Auto) 4.3 1.6-8.6 10 ^3/uL Lymphocytes # (Auto) 2.8 0.4-5.4 10 ^3/uL Monocytes # (Auto) 0.9 0-1.3 10 ^3/uL Eosinophils # (Auto) 0.5 0-0.8 10 ^3/uL Basophils # (Auto) 0.1 0-0.2 10 ^3/uL Nucleated Red Blood Cells 0.1 % Sodium Level 130 L 136-145 mmol/L Potassium Level 3.9 3.5-5.1 mmol/L Chloride Level 96 L 98-107 mmol/L Carbon Dioxide Level 24 20-31 mmol/L Anion Gap 10 5-15 Blood Urea Nitrogen 52 H 9-23 mg/dL Creatinine 3.85 H 0.700-1.30 mg/dL Glomerular Filtration Rate Calc 15 >90 mL/min BUN/Creatinine Ratio 13.5 10.0-20.0 Serum Glucose 91 74-106 mg/dL Lactic Acid Level 1.3 0.4-2.0 mmol/L Calcium Level 9.9 8.7-10.4 mg/dL Total Bilirubin 0.4 0.2-1.0 mg/dL Aspartate Amino Transferase (AST) 14 13-40 U/L Alanine Aminotransferase (ALT) < 9 7-40 U/L Alkaline Phosphatase 79 46-116 U/L B-Type Natriuretic Peptide 31.11 0-100 pg/mL Total Protein 7.9 5.7-8.2 g/dL Albumin 4.2 3.2-4.8 g/dL Lipase 73 H 12-53 U/L INDICATION: flank pain TECHNIQUE: Multiple real-time sonographic images of the kidneys and bladder were obtained. COMPARISON: US KIDNEY on DOS: 07/20/22, US KIDNEY on DOS: 06/22/22 FINDINGS: The right kidney measures 10.4 cm in length, which is normal in size. There is increased echogenicity of the right kidney. No hydronephrosis. Trace right perinephric fluid. There is a right renal cyst measuring 2.6 cm. The left kidney measures 9.0 cm in length, which is normal in size. There is increased echogenicity of the left kidney. No hydronephrosis. No large intraluminal masses are seen in the bladder. IMPRESSION: Echogenic bilateral kidneys suggestive of chronic medical renal disease. No hydronephrosis. Right renal cysts are visualized. Possible debris in the urinary bladder. Correlate with urinalysis. EXAM: XY CHEST XRAY 1 VIEW HISTORY: SOB COMPARISON: XY CHEST XRAY 1 VIEW on DOS: 07/26/24 TECHNIQUE: Portable upright AP view of the chest was performed. FINDINGS: There is cardiomegaly with interstitial pulmonary edema, increased versus that seen on the previous chest x-ray. No pneumothorax or consolidative infiltrates. There are degenerative changes of the thoracic spine and bilateral shoulders. IMPRESSION: Cardiomegaly with interstitial pulmonary edema consistent with CHF exacerbation. EXAM: CT Abdomen and Pelvis Without Intravenous Contrast CLINICAL INDICATION: Right flank pain, abdominal distention, constipation TECHNIQUE: Axial computed tomography images of the abdomen and pelvis without intravenous contrast. This CT exam was performed using one or more of the following dose reduction techniques: automated exposure control, adjustment of the mA and/or kV according to patient size, and/or use of iterative reconstruction technique. CONTRAST: COMPARISON: CT CT AB PEL WO CON-NO ORAL OR IV on DOS: 06/21/22 FINDINGS: LUNG BASES: Unremarkable. No mass. No consolidation. MEDIASTINUM: Small esophageal hiatal hernia. ABDOMEN: LIVER: 4.4 cm simple hepatic cyst. GALLBLADDER AND BILE DUCTS: Gallbladder is surgically absent. No ductal dilation. PANCREAS: Unremarkable. No ductal dilation. SPLEEN: Unremarkable. No splenomegaly. ADRENALS: Unremarkable. No mass. KIDNEYS AND URETERS: Apparent striated enhancement of the kidneys, bilaterally concerning for pyelonephritis. Clinical correlation is recommended. Punctate right nephrolithiasis without hydronephrosis. Bilateral renal cysts. STOMACH AND BOWEL: Unremarkable. No obstruction. No mucosal thickening. PELVIS: APPENDIX: No findings to suggest acute appendicitis. BLADDER: Bladder wall thickening which may be due to the decompressed state of the bladder or due to cystitis. No stones. REPRODUCTIVE: Unremarkable as visualized. ABDOMEN and PELVIS: INTRAPERITONEAL SPACE: Unremarkable. No free air. No significant fluid collection. BONES/JOINTS: No acute fracture. No dislocation. SOFT TISSUES: Umbilical hernia containing fat. Left inguinal hernia. VASCULATURE: Scattered calcified atherosclerotic disease of aorta. No abdominal aortic aneurysm. LYMPH NODES: Unremarkable. No enlarged lymph nodes. OTHER FINDINGS: . IMPRESSION: 1. Apparent striated enhancement of the kidneys, bilaterally concerning for pyelonephritis. Clinical correlation is recommended. 2. Bladder wall thickening which may be due to the decompressed state of the bladder or due to cystitis. 3. Small esophageal hiatal hernia. 4. Umbilical hernia containing fat. 5. Left inguinal hernia. Assessment/Plan Assessment/Plan Assessment Anemia Hyponatremia CATA Intractable abdominal pain Cardiomegaly Acute cystitis probable ESBL Right-sided flank pain probable pyelonephritis Small esophageal hiatal hernia Umbilical hernia containing fat Left inguinal hernia History of hypertension History of diabetes type 2 History of CKD History of arthritis History of frequent UTIs History of osteoarthritis History of cholecystectomy History of hernia repair Plan Admit to med [facility] [place] CT abdomen and pelvis noted IV antibiotics-Flagyl + ceftriaxone changed to ertapenem NS 1 L given ED Antiemetics Pain management Chest x-ray noted BNP Blood cultures Procalcitonin UA Lipase Lactic Ultrasound kidney ordered Last echo on 06/22/2022 EF 65-70% Echo ordered PSA Flomax DVT prophylaxis-Lovenox PUD prophylaxis-famotidine Home medications reconciled Discussed plan of care with patient, patient's spouse, patient's daughter, and nurse Nephro consulted Plan discussed with: Patient, Spouse, Daughter My Orders Orders - DAMI FORD DROSOPHERE OPERATOR Procedure Category Date Status Time Metronidazole Ivpb PHA 07/26/24 Verified Flagyl 14:00 Ceftriaxone Ivpb PHA 07/26/24 Verified Rocephin 09:00 Date of Service: Jul 26, 2024 Billing Provider: DAMI FORD Common Visit Codes: [id number] INP/OBS CARE (HIGH) DAMI FORD Jul 26, 2024 08:13
[2024-07-26] MEDS ORDERED: HYDROcodone-ACET 5/325MG TAB PO PRN (08:15)
[2024-07-26] MEDS ORDERED: ONDANSETRON HCL 4 MG/2 ML VIAL IV PRN (08:15)
[2024-07-26] MEDS ORDERED: DEXTROSE (50%) 50ML SYRG IV PRN (08:15)
[2024-07-26] MEDS: cefTRIAXone 1GM/50ML D5W 50 ML IV ONE (08:45)
[2024-07-26] MEDS: metroNIDAZOLE 500MG/100ML 100 ML IV ONE (09:21)
[2024-07-26] MEDS: ENOXAPARIN SOD 30 MG/0.3 ML SYRINGE SC SCH (10:10)
--- NOTE | 2024-07-26 10:22 | DVHINCON2 ---
Date of service: Jul 26, 2024 Referring Physician MACY FORD Reason for Consultation Acute kidney injury History of Present Illness Patient is a 83-year-old female with past medical history of diabetes mellitus, hypertension, chronic kidney disease stage 4, neurogenic bladder, urinary reten tion and UTI is admitted for abdominal pain that radiates to the back on admission patient found to have elevated BUN creatinine nephrology is consulted for acute kidney injury Past Medical History diabetes mellitus, hypertension, chronic kidney disease stage 4, neurogenic bladder, urinary retention and UTI Allergies: Coded Allergies: NO KNOWN ALLERGIES (Unverified , 04/30/19) Home Meds Active Scripts Ciprofloxacin Hcl (Cipro) 500 Mg Tab, 1 TAB PO BID, #14 TAB Prov:PHILLIP SCHWARZ MD 07/21/22 Tamsulosin Hcl (Flomax) 0.4 Mg Cap, 0.4 MG PO QPM for 30 Days, #30 CAP Prov:PHILLIP SCHWARZ MD 07/21/22 Reported Medications Insulin Glargine (Lantus) 100 Unit/Ml Inj, 100 UNIT SC DAILY, INJ 06/23/22 Simvastatin (Simvastatin) 40 Mg Tab, 40 MG PO DAILY for 30 Days 06/23/22 Amlodipine Besylate (Amlodipine Besylate) 10 Mg Tab, 1 TAB PO DAILY, #30 TAB 5 Refills 06/23/22 Pioglitazone Hydrochloride (ACTOS TABLET) 30 Mg Tb, 30 MG GT DAILY, TAB 06/23/22 Allopurinol (Allopurinol) 300 Mg Tab, 300 MG PO DAILY, TAB 06/23/22 Metoprolol Tartrate (Metoprolol Tartrate) 50 Mg Tab, 50 MG PO BID for 30 Days, MG 06/23/22 Current Medications Current Medications Medications (Trade) Dose Ordered Sig/Joe Route PRN Reason Start Time Stop Time Status Last Admin Metronidazole 100 ml @ 100 mls/hr Q8HR IV 07/26/24 14:00 07/26/24 11:52 DC Ceftriaxone Sodium 50 ml @ 100 mls/hr DAILY@09 IV 07/27/24 09:00 07/26/24 11:52 DC Acetaminophen/ Hydrocodone Bitart ([place] 5/325MG Tab) 1 tab Q4HP PRN PO MODERATE PAIN (4-6 PAIN SCALE) 07/26/24 08:15 Ondansetron HCl (Zofran) 4 mg Q4HP PRN IV NAUSEA / VOMITING 07/26/24 08:15 Enoxaparin Sodium (Lovenox) 30 mg DAILY SC 07/26/24 10:00 07/26/24 10:10 Acetaminophen (Tylenol Tablet) 650 mg Q6HP PRN PO PAIN SCALE 1-3 OR TEMP>100.4 07/26/24 08:15 Morphine Sulfate 2 mg Q4HPRN PRN IV SEVERE PAIN (7-10 PAIN SCALE) 07/26/24 08:15 Diagnostic Test (Pha) (Accu-Chek Comfort Curve T) 1 strip ACHS 07/26/24 11:30 07/26/24 11:46 Insulin Human Regular (InsuLIN R) ACHS SC 07/26/24 11:30 Dextrose 50 ml UD PRN IV Blood Sugar LESS THAN 60 07/26/24 08:15 Sodium Chloride 1,000 ml @ 100 mls/hr Q10H IV 07/26/24 10:30 UNV Ertapenem 0.5 gm/ Sodium Chloride 50 ml @ 100 mls/hr DAILY IV 07/27/24 10:00 UNV Family History: Diabetes mellitus G8 MOTHER H&P Exam Vital Signs/I&O Vital Sign Date Time Temp Pulse Resp B/P (MAP) Pulse Ox O2 Delivery O2 Flow Rate FiO2 07/26/24 10:00 72 14 139/59 (85) 93 07/26/24 08:03 97.4 97.4 07/26/24 08:03 Room Air* 0 21 Labs/Diagnostic Data Labs/Diagnostic Data Laboratory Tests Test 07/26/24 11:43 07/26/24 11:20 07/26/24 04:15 07/26/24 03:14 Range/Units POC Glucose 127 H 70-106 mg/dl Urine Color Colorless Yellow Urine Clarity Turbid H Clear Urine pH 6.0 5.0-9.0 Urine Specific [place] 1.010 1.001-1.035 Urine Protein 1+ H Negative Urine Ketones Negative Negative Urine Blood 1+ H Negative /uL Urine Nitrite 1+ H Negative Urine Bilirubin Negative Negative Urine Urobilinogen Normal Negative mg/dL Urine Leukocyte Esterase 3+ Negative /uL Urine RBC 8 0 - 3 /hpf Urine Microscopic WBC 294 H 0-3 /HPF Urine Squamous Epithelial Cells Few <5 /hpf Urine Bacteria None seen None Seen /hpf Urine Osmolality 209 mOsm/kg Urine Glucose Normal Normal mg/dL White Blood Count 8.6 4.4-10.8 10^3/uL Red Blood Count 3.70 L 4.5-5.90 10^6/uL Hemoglobin 11.8 L 13.5-17.5 g/dL Hematocrit 35.8 L 41.0-53.0 % Mean Corpuscular Volume 96.6 80.0-100.0 fL Mean Corpuscular Hemoglobin 31.9 28.0-32.0 pg Mean Corpuscular Hemoglobin Concent 33.0 32.0-36.0 g/dL Red Cell Distribution Width 16.0 H 11.8-14.3 % Platelet Count 273 140-450 10^3/uL Mean Platelet Volume 7.4 6.9-10.8 fL Neutrophils (%) (Auto) 50.3 37.0-80.0 % Lymphocytes (%) (Auto) 32.6 10.0-50.0 % Monocytes (%) (Auto) 10.7 0.0-12.0 % Eosinophils (%) (Auto) 5.5 0.0-7.0 % Basophils (%) (Auto) 0.9 0.0-2.0 % Neutrophils # (Auto) 4.3 1.6-8.6 10 ^3/uL Lymphocytes # (Auto) 2.8 0.4-5.4 10 ^3/uL Monocytes # (Auto) 0.9 0-1.3 10 ^3/uL Eosinophils # (Auto) 0.5 0-0.8 10 ^3/uL Basophils # (Auto) 0.1 0-0.2 10 ^3/uL Nucleated Red Blood Cells 0.1 % Sodium Level 130 L 136-145 mmol/L Potassium Level 3.9 3.5-5.1 mmol/L Chloride Level 96 L 98-107 mmol/L Carbon Dioxide Level 24 20-31 mmol/L Anion Gap 10 5-15 Blood Urea Nitrogen 52 H 9-23 mg/dL Creatinine 3.85 H 0.700-1.30 mg/dL Glomerular Filtration Rate Calc 15 >90 mL/min BUN/Creatinine Ratio 13.5 10.0-20.0 Serum Glucose 91 74-106 mg/dL Hemoglobin A1c 7.0 H <5.7 % A1C Lactic Acid Level 1.3 0.4-2.0 mmol/L Calcium Level 9.9 8.7-10.4 mg/dL Phosphorus Level 5.0 2.4-5.1 mg/dL Magnesium Level 2.3 1.6-2.6 mg/dL Total Bilirubin 0.4 0.2-1.0 mg/dL Aspartate Amino Transferase (AST) 14 13-40 U/L Alanine Aminotransferase (ALT) < 9 7-40 U/L Alkaline Phosphatase 79 46-116 U/L B-Type Natriuretic Peptide 31.11 0-100 pg/mL Total Protein 7.9 5.7-8.2 g/dL Albumin 4.2 3.2-4.8 g/dL Lipase 73 H 12-53 U/L Parathyroid Hormone (Intact) 66.0 18.4-80.1 pg/mL Vitamin D 25-Hydroxy 36.2 30.0-100 ng/mL Assessment Acute kidney injury superimposed Chronic Kidney Disease stage IV secondary hemodynamic mediated Diabetes mellitus type 2 Neurogenic bladder Urinary retention Urinary tract infection Pyelonephritis Suspect ESBL Hypertension Hyponatremia due to excess H2O Recommendations Closely monitor fluid and electrolytes Avoid nephrotoxic medications Tapia catheter Strict I&Os Check urinalysis urine lytes and protein excretion CT scan suggested pyelonephritis Fluid restrictions Furosemide 40 mg IV q.day Renal diet IV antibiotics We will continue to follow Patient seen and examined by myself in the ER. I discussed my plan of care with the patient and primary nurse at the bedside I would like to thank Macy for the consult, will follow Plan discussed with: Patient DINORAH MUÑOZ MD Jul 26, 2024 10:22
[2024-07-26 10:49] LABS: Magnesium 2.3 mg/dL (1.6-2.6)
[2024-07-26] MEDS: InsuLIN REG 1unit/0.01ml Soln (100units/ml) SC SCH (11:30)
[2024-07-26 11:36] LABS: Urine Bacteria None Seen /hpf (None Seen)
[2024-07-26] MEDS: ACCU-CHEK COMFORT CURVE STRIP VI SCH (11:46)
[2024-07-26 11:49] LABS: Urine Blood 1+ /uL (Negative); Urine Clarity Turbid (Clear); Urine Color Colorless (Yellow); Urine Protein, UAD 1+ (Negative); Urine Squamous Epithelial Cell FEW /hpf (<5); Urine Urobilinogen Normal (Negative); Urine WBC 294 /HPF (0-3)
--- NOTE | 2024-07-26 11:53 | DVHPNRES ---
Progress Note Date Seen: Jul 26, 2024 Resident Creating Document: NISHA LOPEZ RESIDENT Medical Necessity Reason Pt with a Central, PICC or Fol: No Subjective Review of Systems This is a 82-year-old male with past medical history of hypertension, type 2 diabetes mellitus, CKD stage 4, arthritis, recurrent UTI, osteoarthritis, status post cholecystectomy and hernia repair presented to the ED with a chief complaint of bilateral flank pain and generalized weakness since 2 these prior to this admission. According to the patient the flank pain started 2 days ago which was 8/10, radiated to groin and associated with chills, nausea and the patient has also bilateral lower leg paralysis and neurogenic bladder since last 2 years . Patient was seen and examined on the bedside. He is alert oriented x3. complaint of bilateral flank pain . No other active complaint Constitutional: No: Fever, Chills, Sweats, Weakness, Malaise, Other Eyes: No: Pain, Vision change, Conjunctivae inflammation, Eyelid inflammation, Other, Redness ENT: No: Ear pain, Ear discharge, Nose pain, Nose discharge, Nose congestion, Mouth pain, Mouth swelling, Throat pain, Throat swelling, Other Respiratory: Shortness of breath, improving No: Cough, Dry,Wheezing, Hemoptysis, Pleuritic Pain, Sputum, Wheezing, Other Cardiovascular: No: Chest Pain, Palpitations, Orthopnea, Paroxysmal Noc. Dyspnea, Edema, Lt Headedness, Other Gastrointestinal: Nausea, Vomiting, Abdominal Pain, No Diarrhea, Constipation, Melena, Hematochezia, Other Musculoskeletal: No: other, neck pain, shoulder pain, arm pain, back pain, hand pain, leg pain, foot pain Neurological:; No: Weakness, Numbness, Incoordination, Change in speech, Confusion, Seizures Objective vital signs Vital Sign Date Time Temp Pulse Resp B/P (MAP) Pulse Ox O2 Delivery O2 Flow Rate FiO2 07/26/24 10:00 72 14 139/59 (85) 93 07/26/24 08:03 97.4 97.4 07/26/24 08:03 Room Air* 0 21 medications Current Medications Medications Dose Ordered Sig/Joe Route Start Time Stop Time Status Last Admin Dose Admin Acetaminophen/ Hydrocodone Bitart 1 tab Q4HP PRN PO 07/26/24 08:15 Ondansetron HCl 4 mg Q4HP PRN IV 07/26/24 08:15 Enoxaparin Sodium 30 mg DAILY SC 07/26/24 10:00 07/26/24 10:10 30 MG Acetaminophen 650 mg Q6HP PRN PO 07/26/24 08:15 Morphine Sulfate 2 mg Q4HPRN PRN IV 07/26/24 08:15 Diagnostic Test (Pha) 1 strip ACHS 07/26/24 11:30 07/26/24 11:46 1 STRIP Insulin Human Regular ACHS SC 07/26/24 11:30 Dextrose 50 ml UD PRN IV 07/26/24 08:15 Sodium Chloride 1,000 ml @ 100 mls/hr Q10H IV 07/26/24 10:30 UNV Ertapenem 0.5 gm/ Sodium Chloride 50 ml @ 100 mls/hr DAILY IV 07/27/24 10:00 UNV Examination Physical examination: General Appearance: Alert, Oriented X3, Cooperative, No acute distress HEENT: Atraumatic, PERRLA, EOMI, Mucous membrane moist/pink Respiratory: Clear to auscultation, Normal air movement Cardiovascular: Regular rate, Normal S1, Normal S2, No murmurs, no chest wall tenderness Abdominal: Normal bowel sounds, Soft, bilateral CVA tenderness, No hepatospenomegaly, No masses Extremities: No clubbing, No cyanosis, No edema, Normal pulses. Skin: No rashes, No breakdown, No significant lesion Neuro: Wheel chair bound, Normal speech, Strength at 5/5 X2 ext, bilateral lower limb paralysis, Sensation intact, Cranial nerves 3-12 NL, Reflexes 2+ Psych/Mental Status: Mental status NL, Mood NL laboratory and microbiology Laboratory Tests 07/26/24 04:15 Test 07/26/24 04:15 Range/Units Serum Glucose 91 74-106 mg/dL Labs and/or images reviewed: Labs reviewed by me, Image(s) reviewed by me Problem List/Assessment/Plan Problem List/Assessment/Plan Assessment and plan: # Possible acute pyelonephritis # Acute complicated UTI, likely ESBL # Acute urinary retention Likely due to BPH, s/p loera # CATA on CKD stage 4 likely hemodynamically mediated /VMN # History of neurogenic bladder - CT abdomen pelvis demonstrated apparent striated enhancement of the kidneys, bilaterally concerning for pyelonephritis, bladder wall thickening likely due to cystitis, umbilical hernia containing fat and left inguinal hernia. - U/S of the kidney showed Echogenic bilateral kidneys suggestive of chronic medical renal disease. No hydronephrosis. Right renal cysts are visualized. Possible debris in the urinary bladder. - U/A consistent with UTI - Pending urine c/s - Nephrology on board - IV N/S saline at 100 mL/hour - IV ertapenem 0.5 mg daily ( started on 07/26/24) - Continue Flomax 0.4 mg at HS - Monitor BMP # Hypertensive heart disease with possible chronic diastolic heart failure - Continue metoprolol tartrate 50 mg p.o. b.i.d. and amlodipine 10 mg p.o. daily # Type 2 diabetes mellitus hemoglobin A1c 7 - Lantus 10 units at HS and mild sliding scale of insulin # History of gout - Continue 300 mg p.o. daily # PUD prophylaxis - Pepcid 20 mg po daily. # DVT prophylaxis - Lovenox 30 mg sc daily. Goal of care discussed with the patient for more than 20 minutes full code Plan discussed with Dr. White critical care time 39 mins Plan discussed with: Patient, Other My Orders My Orders Orders - NISHA LOPEZ Procedure Category Date Status Time Ertap 0.5gm Daily PHA 07/27/24 Transmitted (Renal Dose 10:00 Ertap 0.5gm Once PHA 07/26/24 Transmitted (Renal Dose 12:00 Date of Service: Jul 26, 2024 Billing Provider: PHILLIP WHITE MD Common Visit Codes: [id number] CARE 30-74 MIN NISHA LOPEZ Jul 26, 2024 11:53 PHILLIP WHITE MD Jul 26, 2024 17:24
--- NOTE | 2024-07-26 13:10 | DVH ---
INDICATION: flank pain TECHNIQUE: Multiple real-time sonographic images of the kidneys and bladder were obtained. COMPARISON: US KIDNEY on DOS: 07/20/22, US KIDNEY on DOS: 06/22/22 FINDINGS: The right kidney measures 10.4 cm in length, which is normal in size. There is increased ec hogenicity of the right kidney. No hydronephrosis. Trace right perinephric fluid. There is a right re nal cyst measuring 2.6 cm. The left kidney measures 9.0 cm in length, which is normal in size. There is increased echogenicity o f the left kidney. No hydronephrosis. No large intraluminal masses are seen in the bladder. IMPRESSION: Echogenic bilateral kidneys suggestive of chronic medical renal disease. No hydronephrosis. Right justin al cysts are visualized. Possible debris in the urinary bladder. Correlate with urinalysis.
[2024-07-26] MEDS: SODIUM CHLORIDE 0.9% 1,000 ML IV SCH (13:22)
[2024-07-26] MEDS: ERTAPENEM SOD INJ 0.5 GM in SODIUM CHL 0.9% 50 ML IV ONE (13:58)
[2024-07-26] MEDS ORDERED: metroNIDAZOLE 500MG/100ML 100 ML IV SCH (14:00)
[2024-07-26 15:31] LABS: Protein, Urine 84.5 mg/dL (1-14)
[2024-07-26 15:34] LABS: Creatinine, Urine 50.01 mg/dL (30.0-125.0); Urine Protein/Creatinine Ratio 1.69
[2024-07-26] MEDS: FAMOTIDINE 20 MG TAB PO ONE (16:14)
[2024-07-26] MEDS: TAMSULOSIN HYDROCHLORIDE 0.4 MG CAP PO SCH (18:26)
[2024-07-26 19:31] VITALS: BP 141/70; PULSE 72; RESP 16; RESP 20; TEMP 97.4; O2SAT 96; O2SAT 97
[2024-07-26 20:00] VITALS: PULSE 62; RESP 16; O2SAT 97
[2024-07-26] MEDS ORDERED: POTA-36 PO (20:07)
[2024-07-26] MEDS ORDERED: FURO1TAB31 PO (20:11)
[2024-07-26] MEDS ORDERED: CHLO25TA2 PO (20:11)
[2024-07-26 21:00] VITALS: BP 141/70; PULSE 72; RESP 16; TEMP 97.4; O2SAT 96
[2024-07-26] MEDS: ATORVASTATIN 20 MG TAB PO SCH (21:11)
[2024-07-26] MEDS: METOPROLOL TARTRATE 50 MG TAB PO SCH (21:11)
[2024-07-26] MEDS: INSULIN LANTUS (GLARGINE) 1 /0.01ml (100units/ml) SC SCH (21:13)
[2024-07-27 01:00] VITALS: BP 119/60; PULSE 62; RESP 15; TEMP 97.3; O2SAT 97
[2024-07-27 07:10] LABS: Basophils # (auto) 0.1 10 ^3/uL (0-0.2); Basophils % (auto) 0.9 % (0.0-2.0); Eosinophils # (auto) 0.5 10 ^3/uL (0-0.8); Eosinophils % (auto) 8.8 % (0.0-7.0); Hemoglobin 11.7 g/dL (13.5-17.5); Lymphocytes # (auto) 1.7 10 ^3/uL (0.4-5.4); Lymphocytes % (auto) 27.4 % (10.0-50.0); Mean Corpuscular Hemoglobin 32.1 pg (28.0-32.0); Mean Corpuscular Hgb Conc. 33.4 g/dL (32.0-36.0); Monocytes # (auto) 0.5 10 ^3/uL (0-1.3); Monocytes % (auto) 7.9 % (0.0-12.0); Neutrophils # (auto) 3.3 10 ^3/uL (1.6-8.6); Platelet Count (auto) 279 10^3/uL (140-450); Red Blood Cells 3.64 10^6/uL (4.5-5.90); Red Cell Distribution Width 15.7 % (11.8-14.3); White Blood Cell 6.1 10^3/uL (4.4-10.8)
[2024-07-27 07:24] LABS: Albumin 3.8 g/dL (3.2-4.8); Alkaline Phosphatase 73 U/L (46-116); Anion Gap 11 (5-15); Aspartate Aminotransferase 17 U/L (13-40); Calcium 9.7 mg/dL (8.7-10.4); Carbon Dioxide 21 mmol/L (20-31); Glucose 95 mg/dL (74-106); Potassium 4.1 mmol/L (3.5-5.1); Total Protein 7.5 g/dL (5.7-8.2)
[2024-07-27 07:25] LABS: Alanine Aminotransferase < 9 U/L (7-40); Bilirubin, Total 0.3 mg/dL (0.2-1.0); Blood Urea Nitrogen 48 mg/dL (9-23); Chloride 97 mmol/L (98-107); Sodium 129 mmol/L (136-145)
[2024-07-27 08:00] VITALS: PULSE 68; RESP 15; O2SAT 98
[2024-07-27 08:07] LABS: PSA Free 0.94 ng/mL; Prostate Specific Antigen 2.4 ng/mL (0.0-4.0)
[2024-07-27 09:00] VITALS: BP 126/53; PULSE 69; RESP 17; TEMP 98.3; O2SAT 95
[2024-07-27] MEDS ORDERED: cefTRIAXone 1GM/50ML D5W 50 ML IV SCH (09:00)
[2024-07-27] MEDS: PANTOPRAZOLE 40 MG/10 ML VIAL INJ IV SCH (10:54)
[2024-07-27] MEDS: amLODIPine BESYLATE 5 MG TAB PO SCH (10:58)
[2024-07-27] MEDS: ALLOPURINOL 100 MG TAB PO SCH (10:59)
[2024-07-27] MEDS: ERTAPENEM SOD INJ 0.5 GM in SODIUM CHL 0.9% 50 ML IV SCH (11:13)
[2024-07-27] MEDS: MORPHINE SULFATE INJ 2 MG/ml SYRG IV PRN (12:51)
[2024-07-27 13:00] VITALS: BP 91/52; PULSE 78; RESP 16; TEMP 97.4; O2SAT 95
--- NOTE | 2024-07-27 14:21 | DVHPN2 ---
Progress Note Date Seen: Jul 27, 2024 Medical Necessity Reason Pt with a Central, PICC or Fol: No Subjective Patient reports: No new complaints Other Systems: Patient seen and examined by myself today in follow-up Objective vital signs Vital Sign Date Time Temp Pulse Resp B/P (MAP) Pulse Ox O2 Delivery O2 Flow Rate FiO2 07/27/24 13:00 97.4 78 16 91/52 (65) 95 97.4 07/27/24 08:00 Room Air* 0 21 Total Intake and Output 07/26/24 07/26/24 07/27/24 15:00 23:00 07:00 Intake Total 1200 ml 200 ml 0 ml Output Total 850 ml Balance 1200 ml 200 ml -850 ml medications Current Medications Medications Dose Ordered Sig/Joe Route Start Time Stop Time Status Last Admin Dose Admin Acetaminophen/ Hydrocodone Bitart 1 tab Q4HP PRN PO 07/26/24 08:15 Ondansetron HCl 4 mg Q4HP PRN IV 07/26/24 08:15 Enoxaparin Sodium 30 mg DAILY SC 07/26/24 10:00 07/27/24 11:13 30 MG Acetaminophen 650 mg Q6HP PRN PO 07/26/24 08:15 Morphine Sulfate 2 mg Q4HPRN PRN IV 07/26/24 08:15 07/27/24 12:51 2 MG Diagnostic Test (Pha) 1 strip ACHS 07/26/24 11:30 07/27/24 11:30 1 STRIP Insulin Human Regular ACHS SC 07/26/24 11:30 07/27/24 13:11 2 UNITS Dextrose 50 ml UD PRN IV 07/26/24 08:15 Ertapenem 0.5 gm/ Sodium Chloride 50 ml @ 100 mls/hr DAILY IV 07/27/24 10:00 07/27/24 11:13 100 MLS/HR Metoprolol Tartrate 50 mg BID PO 07/26/24 22:00 07/27/24 10:59 50 MG Tamsulosin HCl 0.4 mg QPM PO 07/26/24 18:00 07/26/24 18:26 0.4 MG Allopurinol 300 mg DAILY PO 07/27/24 10:00 07/27/24 10:59 300 MG Amlodipine Besylate 10 mg DAILY PO 07/27/24 10:00 07/27/24 10:58 10 MG Atorvastatin Calcium 20 mg HS PO 07/26/24 22:00 07/26/24 21:11 20 MG Insulin Glargine 10 units HS SC 07/26/24 22:00 Famotidine 10 mg HS PO 07/27/24 22:00 Future Hold Pantoprazole Sodium 40 mg DAILY IV 07/27/24 10:00 07/27/24 10:54 40 MG Examination: LUNGS:Normal, CVS:Normal, MSK:Normal laboratory and microbiology Laboratory Tests 07/27/24 06:44 Test 07/27/24 06:44 Range/Units Serum Glucose 95 74-106 mg/dL Microbiology Date/Time Source Procedure Growth Status 07/26/24 04:15 Blood Blood Culture - Preliminary NO GROWTH AFTER 24 HOURS OF INCUBATION. Resulted Problem List/Assessment/Plan Problem List/Assessment/Plan Acute kidney injury superimposed Chronic Kidney Disease stage IV secondary hemodynamic mediated Diabetes mellitus type 2 Neurogenic bladder Urinary retention Urinary tract infection Pyelonephritis Suspect ESBL Hypotension Hyponatremia due to excess H2O Recommendations Kidney function slightly worsened today Hyponatremia worsened due to water retention Tapia catheter Strict I&Os Check urinalysis urine lytes and protein excretion CT scan suggested pyelonephritis Kidney ultrasound reported bilateral echogenic kidney and simple cysts Fluid restrictions Furosemide 40 mg IV q.day DC amlodipine due to low blood pressure Renal diet IV antibiotics We will continue to follow Plan discussed with: Patient My Orders My Orders Orders - DINORAH MUÑOZ MD Procedure Category Date Status Time Maintain Fluid OMAR 07/27/24 In Process Restrictions 14:18 DINORAH MUÑOZ MD Jul 27, 2024 14:21
[2024-07-27 16:04] LABS: Urine Bacteria None Seen /hpf (None Seen)
[2024-07-27 16:13] LABS: Urine Blood 2+ /uL (Negative); Urine Clarity Ex.Turbid (Clear); Urine Color Brown (Yellow); Urine Mucus FEW (None Seen); Urine Protein, UAD 1+ (Negative); Urine Specific Gravity 1.004 (1.001-1.035); Urine Squamous Epithelial Cell FEW /hpf (<5); Urine Urobilinogen Normal (Negative); Urine WBC 645 /HPF (0-3); Urine WBC Clumps PRESENT /hpf (None Seen)
[2024-07-27 17:00] VITALS: BP 125/58; PULSE 78; RESP 16; TEMP 97.4; O2SAT 98
[2024-07-27] MEDS: FUROSEMIDE 40 MG/4 ML VIAL IV SCH (18:08)
--- NOTE | 2024-07-27 18:10 | DVHPNRES ---
Progress Note Date Seen: Jul 27, 2024 Resident Creating Document: NISHA LOPEZ RESIDENT Medical Necessity Reason Pt with a Central, PICC or Fol: No Subjective Review of Systems The patient was seen and examined on the bedside. He is alert oriented x3. No overnight events and complaint of right flank pain. No other active complaints. Objective vital signs Vital Sign Date Time Temp Pulse Resp B/P (MAP) Pulse Ox O2 Delivery O2 Flow Rate FiO2 07/27/24 18:08 119/60 07/27/24 18:07 62 15 07/27/24 17:00 97.4 98 97.4 07/27/24 08:00 Room Air* 0 21 Total Intake and Output 07/26/24 07/26/24 07/27/24 15:00 23:00 07:00 Intake Total 1200 ml 200 ml 0 ml Output Total 850 ml Balance 1200 ml 200 ml -850 ml medications Current Medications Medications Dose Ordered Sig/Joe Route Start Time Stop Time Status Last Admin Dose Admin Acetaminophen/ Hydrocodone Bitart 1 tab Q4HP PRN PO 07/26/24 08:15 Ondansetron HCl 4 mg Q4HP PRN IV 07/26/24 08:15 Enoxaparin Sodium 30 mg DAILY SC 07/26/24 10:00 07/27/24 11:13 30 MG Acetaminophen 650 mg Q6HP PRN PO 07/26/24 08:15 Morphine Sulfate 2 mg Q4HPRN PRN IV 07/26/24 08:15 07/27/24 18:07 2 MG Diagnostic Test (Pha) 1 strip ACHS 07/26/24 11:30 07/27/24 17:30 1 STRIP Insulin Human Regular ACHS SC 07/26/24 11:30 07/27/24 13:11 2 UNITS Dextrose 50 ml UD PRN IV 07/26/24 08:15 Ertapenem 0.5 gm/ Sodium Chloride 50 ml @ 100 mls/hr DAILY IV 07/27/24 10:00 07/27/24 11:13 100 MLS/HR Tamsulosin HCl 0.4 mg QPM PO 07/26/24 18:00 07/27/24 17:56 0.4 MG Allopurinol 300 mg DAILY PO 07/27/24 10:00 07/27/24 10:59 300 MG Atorvastatin Calcium 20 mg HS PO 07/26/24 22:00 07/26/24 21:11 20 MG Insulin Glargine 10 units HS SC 07/26/24 22:00 Famotidine 10 mg HS PO 07/27/24 22:00 Future Hold Pantoprazole Sodium 40 mg DAILY IV 07/27/24 10:00 07/27/24 10:54 40 MG Furosemide 40 mg BIDD IV 07/27/24 18:00 07/27/24 18:08 40 MG Examination Physical examination: General Appearance: Alert, Oriented X3, Cooperative, No acute distress HEENT: Atraumatic, PERRLA, EOMI, Mucous membrane moist/pink Respiratory: Clear to auscultation, Normal air movement Cardiovascular: Regular rate, Normal S1, Normal S2, No murmurs, no chest wall tenderness Abdominal: Normal bowel sounds, Soft, bilateral CVA tenderness, No hepatospenomegaly, No masses Extremities: No clubbing, No cyanosis, No edema, Normal pulses. Skin: No rashes, No breakdown, No significant lesion Neuro: Wheel chair bound, Normal speech, Strength at 5/5 X2 ext, bilateral lower limb paralysis, Sensation intact, Cranial nerves 3-12 NL, Reflexes 2+ Psych/Mental Status: Mental status NL, Mood NL laboratory and microbiology Laboratory Tests 07/27/24 06:44 Test 07/27/24 06:44 Range/Units Serum Glucose 95 74-106 mg/dL Microbiology Date/Time Source Procedure Growth Status 07/26/24 04:15 Blood Blood Culture - Preliminary NO GROWTH AFTER 24 HOURS OF INCUBATION. Resulted Labs and/or images reviewed: Labs reviewed by me, Image(s) reviewed by me Problem List/Assessment/Plan Problem List/Assessment/Plan Assessment and plan: # Possible acute pyelonephritis # Acute complicated UTI, likely ESBL # Acute urinary retention Likely due to BPH, s/p loera # CATA on CKD stage 4 likely hemodynamically mediated /VMN # Dilutional hyponatremia likely due to fluid retention. # History of neurogenic bladder - CT abdomen pelvis demonstrated apparent striated enhancement of the kidneys, bilaterally concerning for pyelonephritis, bladder wall thickening likely due to cystitis, umbilical hernia containing fat and left inguinal hernia. - U/S of the kidney showed Echogenic bilateral kidneys suggestive of chronic medical renal disease. No hydronephrosis. Right renal cysts are visualized. Possible debris in the urinary bladder. - U/A consistent with UTI - Pending urine c/s - Nephrology on board - IV N/S saline at 100 mL/hour - IV ertapenem 0.5 mg daily ( started on 07/26/24) - Continue Flomax 0.4 mg at HS - Monitor BMP # Hypertensive heart disease with possible chronic diastolic heart failure - Continue metoprolol tartrate 50 mg p.o. b.i.d. and amlodipine 10 mg p.o. daily # Type 2 diabetes mellitus hemoglobin A1c 7 - Lantus 10 units at HS and mild sliding scale of insulin # History of gout - Continue 300 mg p.o. daily # PUD prophylaxis - Pepcid 20 mg po daily. # DVT prophylaxis - Lovenox 30 mg sc daily. Goal of care discussed with the patient for more than 20 minutes full code Plan discussed with Dr. White Plan discussed with: Patient, Other My Orders My Orders Orders - NISHA LOPEZ Procedure Category Date Status Time * Wound Consult CONS 07/27/24 Transmitted Communication Order ORDERS 07/27/24 Transmitted 15:55 Date of Service: Jul 27, 2024 Billing Provider: PHILLIP WHITE MD Common Visit Codes: [id number] INP/OBS CARE(HIGH) NISHA LOPEZ Jul 27, 2024 18:10 PHILLIP WHITE MD Jul 27, 2024 19:20
[2024-07-27 21:00] VITALS: BP 102/54; PULSE 89; RESP 14; TEMP 97.5; O2SAT 96
[2024-07-27] MEDS ORDERED: FAMOTIDINE 20 MG TAB PO SCH (22:00)
[2024-07-28 01:00] VITALS: BP 115/54; PULSE 89; RESP 15; TEMP 97.6; O2SAT 94
[2024-07-28 05:00] VITALS: BP 106/57; PULSE 87; RESP 15; TEMP 97.4; O2SAT 94
[2024-07-28 05:56] LABS: Chloride 98 mmol/L (98-107); Potassium 3.9 mmol/L (3.5-5.1)
[2024-07-28 05:57] LABS: Anion Gap 12 (5-15); Carbon Dioxide 21 mmol/L (20-31)
[2024-07-28 06:02] LABS: BUN/Creatinine Ratio 11.2 (10.0-20.0)
[2024-07-28 06:08] LABS: Blood Urea Nitrogen 51 mg/dL (9-23); Glucose 132 mg/dL (74-106); Sodium 131 mmol/L (136-145)
[2024-07-28 06:16] LABS: Calcium 9.8 mg/dL (8.7-10.4)
[2024-07-28 08:44] VITALS: BP 122/65; PULSE 98; RESP 17; TEMP 97.5; O2SAT 95
[2024-07-28] MEDS: ACETAMINOPHEN 325 MG TAB PO PRN (09:02)
--- NOTE | 2024-07-28 11:57 | DVHPN2 ---
Progress Note Date Seen: Jul 28, 2024 Medical Necessity Reason Pt with a Central, PICC or Fol: No Subjective Patient reports: No new complaints Objective vital signs Vital Sign Date Time Temp Pulse Resp B/P (MAP) Pulse Ox O2 Delivery O2 Flow Rate FiO2 07/28/24 08:44 97.5 98 17 122/65 (84) 95 97.5 07/27/24 08:00 Room Air* 0 21 Total Intake and Output 07/27/24 07/27/24 07/28/24 15:00 23:00 07:00 Intake Total 100 ml 1150 ml Output Total 1200 ml Balance 100 ml -50 ml medications Current Medications Medications Dose Ordered Sig/Joe Route Start Time Stop Time Status Last Admin Dose Admin Acetaminophen/ Hydrocodone Bitart 1 tab Q4HP PRN PO 07/26/24 08:15 Ondansetron HCl 4 mg Q4HP PRN IV 07/26/24 08:15 Enoxaparin Sodium 30 mg DAILY SC 07/26/24 10:00 07/28/24 09:02 30 MG Acetaminophen 650 mg Q6HP PRN PO 07/26/24 08:15 07/28/24 09:02 650 MG Morphine Sulfate 2 mg Q4HPRN PRN IV 07/26/24 08:15 07/27/24 18:07 2 MG Diagnostic Test (Pha) 1 strip ACHS 07/26/24 11:30 07/28/24 05:56 1 STRIP Insulin Human Regular ACHS SC 07/26/24 11:30 07/28/24 05:54 3 UNITS Dextrose 50 ml UD PRN IV 07/26/24 08:15 Ertapenem 0.5 gm/ Sodium Chloride 50 ml @ 100 mls/hr DAILY IV 07/27/24 10:00 07/27/24 11:13 100 MLS/HR Tamsulosin HCl 0.4 mg QPM PO 07/26/24 18:00 07/27/24 17:56 0.4 MG Allopurinol 300 mg DAILY PO 07/27/24 10:00 07/28/24 09:02 300 MG Atorvastatin Calcium 20 mg HS PO 07/26/24 22:00 07/27/24 21:21 20 MG Insulin Glargine 10 units HS SC 07/26/24 22:00 07/27/24 22:00 10 UNITS Famotidine 10 mg HS PO 07/27/24 22:00 Hold Pantoprazole Sodium 40 mg DAILY IV 07/27/24 10:00 07/28/24 09:03 40 MG Furosemide 40 mg BIDD IV 07/27/24 18:00 07/28/24 05:49 40 MG Examination: LUNGS:Normal, CVS:Normal, MSK:Normal laboratory and microbiology Laboratory Tests 07/28/24 05:07 07/27/24 06:44 Test 07/28/24 05:07 Range/Units Serum Glucose 132 H 74-106 mg/dL Microbiology Date/Time Source Procedure Growth Status 07/26/24 04:15 Blood Blood Culture - Preliminary NO GROWTH AFTER 48 HOURS OF INCUBATION. Resulted Problem List/Assessment/Plan Problem List/Assessment/Plan Acute kidney injury superimposed Chronic Kidney Disease stage IV/V secondary hemodynamic mediated Chronic Kidney Disease sees Dr. Chopra Diabetes mellitus type 2 Neurogenic bladder Urinary retention Urinary tract infection Pyelonephritis Suspect ESBL Hypotension Hyponatremia due to excess H2O Recommendations Discussed risks and benefits with the and the patient for hemodialysis and he agrees Consents for tunneled hemodialysis catheter Hemodialysis Radiology for tunneled hemodialysis catheter power project manager for outpatient hemodialysis chair time at [facility] dialysis Tapia catheter Strict I&Os Check urinalysis urine lytes and protein excretion CT scan suggested pyelonephritis Kidney ultrasound reported bilateral echogenic kidney and simple cysts Fluid restrictions Furosemide 40 mg IV q.day DC amlodipine due to low blood pressure Renal diet IV antibiotics We will continue to follow Plan discussed with: Patient My Orders My Orders Orders - DINORAH MUÑOZ MD Procedure Category Date Status Time Maintain Fluid OMAR 07/27/24 In Process Restrictions 14:18 Furosemide Injection PHA 07/27/24 In Process (Lasix Injection) 18:00 DINORAH MUÑOZ MD Jul 28, 2024 11:57
[2024-07-28 13:00] VITALS: BP 102/51; PULSE 87; RESP 17; TEMP 98.3; O2SAT 94
[2024-07-28 14:29] LABS: INR 1.04 (0.9-1.15); Partial Thromboplastin Time 33.4 SEC (24.5-34.5)
--- NOTE | 2024-07-28 16:13 | DVHPNRES ---
Progress Note Date Seen: Jul 28, 2024 Resident Creating Document: JONATHAN LINDER RESIDENT Has the PT tested + for MRSA If YES, has PT been informed?: No Medical Necessity Reason Pt with a Central, PICC or Fol: No Subjective Review of Systems This is a 82-year-old male with past medical history of hypertension, type 2 diabetes mellitus, CKD stage 4, arthritis, recurrent UTI, osteoarthritis, status post cholecystectomy and hernia repair presented to the ED with a chief complaint of bilateral flank pain and generalized weakness since 2 these prior to this admission. According to the patient the flank pain started 2 days ago which was 11/26, radiated to groin and associated with chills, nausea and the patient has also bilateral lower leg paralysis and neurogenic bladder since last 2 years . Patient seen and examined at bedside. Patient states that the abdominal tenderness has been improving compared to admission but still have mild discomfort at this time. Patient denies chest pain, shortness of breath or any other symptoms. Potassium levels at this time are 3.9. Creatinine is 4.55 and BUN 51. Nephrology is on board. Patient will be possible scheduled for dialysis on Wednesday. Electrolytes are unremarkable at this time. Patient denies any additional complaints at this time. ROS Constitutional: Denies weight loss, fever and chills. HEENT: Denies changes in vision and hearing. Respiratory: Denies shortness of breath and cough Cardiovascular: Denies chest discomfort or palpitations GI: Reports mild abdominal discomfort. Denies nausea, vomiting : Denies dysuria and urinary frequency. Musculoskeletal: Denies myalgias and joint pain Skin: Denies rash and pruritus. Neurological: Denies dizziness, headache, vision or hearing problems Objective vital signs Vital Sign Date Time Temp Pulse Resp B/P (MAP) Pulse Ox O2 Delivery O2 Flow Rate FiO2 07/28/24 08:44 97.5 98 17 122/65 (84) 95 97.5 07/27/24 08:00 Room Air* 0 21 Total Intake and Output 07/27/24 07/27/24 07/28/24 15:00 23:00 07:00 Intake Total 100 ml 1150 ml Output Total 1200 ml Balance 100 ml -50 ml medications Current Medications Medications Dose Ordered Sig/Joe Route Start Time Stop Time Status Last Admin Dose Admin Acetaminophen/ Hydrocodone Bitart 1 tab Q4HP PRN PO 07/26/24 08:15 Ondansetron HCl 4 mg Q4HP PRN IV 07/26/24 08:15 Enoxaparin Sodium 30 mg DAILY SC 07/26/24 10:00 07/28/24 09:02 30 MG Acetaminophen 650 mg Q6HP PRN PO 07/26/24 08:15 07/28/24 09:02 650 MG Morphine Sulfate 2 mg Q4HPRN PRN IV 07/26/24 08:15 07/27/24 18:07 2 MG Diagnostic Test (Pha) 1 strip ACHS 07/26/24 11:30 07/28/24 12:07 1 STRIP Insulin Human Regular ACHS SC 07/26/24 11:30 07/28/24 12:06 3 UNITS Dextrose 50 ml UD PRN IV 07/26/24 08:15 Ertapenem 0.5 gm/ Sodium Chloride 50 ml @ 100 mls/hr DAILY IV 07/27/24 10:00 07/28/24 12:12 100 MLS/HR Tamsulosin HCl 0.4 mg QPM PO 07/26/24 18:00 07/27/24 17:56 0.4 MG Allopurinol 300 mg DAILY PO 07/27/24 10:00 07/28/24 09:02 300 MG Atorvastatin Calcium 20 mg HS PO 07/26/24 22:00 07/27/24 21:21 20 MG Insulin Glargine 10 units HS SC 07/26/24 22:00 07/27/24 22:00 10 UNITS Famotidine 10 mg HS PO 07/27/24 22:00 Hold Pantoprazole Sodium 40 mg DAILY IV 07/27/24 10:00 07/28/24 09:03 40 MG Furosemide 40 mg BIDD IV 07/27/24 18:00 07/28/24 05:49 40 MG Examination Physical Examination General: Patient alert and oriented in person, place and time. Patient following commands. HEENT: Normocephalic, atraumatic, moist mucous membranes Respiratory/pulmonary: Clear lungs bilaterally, no associated crackles or wheezes. Cardiovascular: Normal heart sounds S1 and S2 with no associated murmurs Abdomen: Abdomen nondistended, there is mild pain to palpation at right flank with + costovertebral angle tenderness, no palpable masses. Extremities: There is no peripheral edema present at the lower extremities. Peripheral Pulses: 3+ Radial (R). 3+ Radial (L). 3+ Dorsalis pedis (R). 3+ Dorsalis pedis(L) Skin: No rashes or pruritus, there is no sacral edema present at this time. Neurological: Intact cranial nerves with no focal neurologic deficits laboratory and microbiology Laboratory Tests 07/28/24 05:07 07/27/24 06:44 Test 07/28/24 05:07 Range/Units Serum Glucose 132 H 74-106 mg/dL Microbiology Date/Time Source Procedure Growth Status 07/26/24 04:15 Blood Blood Culture - Preliminary NO GROWTH AFTER 48 HOURS OF INCUBATION. Resulted Problem List/Assessment/Plan Problem List/Assessment/Plan Assessment/Plan Acute abdominal pain likely due to acute pyelonephritis Acute complicated UTI, likely ESBL Acute urinary retention Likely due to BPH, s/p loera CATA on CKD stage 4 likely hemodynamically mediated /VMN Dilutional hyponatremia likely due to fluid retention. History of neurogenic bladder - CT abdomen pelvis demonstrated apparent striated enhancement of the kidneys, bilaterally concerning for pyelonephritis, bladder wall thickening likely due to cystitis, umbilical hernia containing fat and left inguinal hernia. - U/S of the kidney showed Echogenic bilateral kidneys suggestive of chronic medical renal disease. No hydronephrosis. Right renal cysts are visualized. Possible debris in the urinary bladder. - U/A consistent with UTI - Pending urine c/s - Nephrology on board - IV N/S saline at 100 mL/hour - IV ertapenem 0.5 mg daily ( started on 07/26/24) - Continue Flomax 0.4 mg at HS - Monitor BMP Hypertensive heart disease with possible chronic diastolic heart failure - Continue metoprolol tartrate 50 mg p.o. b.i.d. and amlodipine 10 mg p.o. daily Type 2 diabetes mellitus hemoglobin A1c 7 - Lantus 10 units at HS and mild sliding scale of insulin History of gout - Continue 300 mg p.o. daily PUD prophylaxis - Pepcid 20 mg po daily. DVT prophylaxis - Lovenox 30 mg sc daily. Goal of care discussed with the patient for > 25 minutes, full code Plan discussed with Dr. White Plan discussed with: Patient, Spouse Date of Service: Jul 28, 2024 Billing Provider: PHILLIP WIHTE MD Common Visit Codes: [id number] INP/OBS CARE(HIGH) JONATHAN LINDER RESIDENT Jul 28, 2024 16:13 PHILLIP WHITE MD Jul 28, 2024 19:47
[2024-07-28 17:00] VITALS: BP 111/49; PULSE 87; RESP 16; TEMP 97.8; O2SAT 94
[2024-07-28 20:38] VITALS: BP 138/56; PULSE 91; RESP 18; TEMP 98; O2SAT 98
[2024-07-29 01:00] VITALS: BP 97/54; PULSE 99; RESP 16; TEMP 98; O2SAT 94
[2024-07-29 05:00] VITALS: BP 122/59; PULSE 103; RESP 16; TEMP 98; O2SAT 95
[2024-07-29 06:49] LABS: Basophils # (auto) 0.1 10 ^3/uL (0-0.2); Basophils % (auto) 1.3 % (0.0-2.0); Eosinophils # (auto) 0.6 10 ^3/uL (0-0.8); Eosinophils % (auto) 10.4 % (0.0-7.0); Hematocrit 38.1 % (41.0-53.0); Hemoglobin 12.4 g/dL (13.5-17.5); Lymphocytes # (auto) 1.7 10 ^3/uL (0.4-5.4); Lymphocytes % (auto) 29.4 % (10.0-50.0); Mean Corpuscular Hgb Conc. 32.5 g/dL (32.0-36.0); Mean Corpuscular Volume 95.4 fL (80.0-100.0); Monocytes # (auto) 0.4 10 ^3/uL (0-1.3); Monocytes % (auto) 6.2 % (0.0-12.0); Neutrophils % (auto) 52.7 % (37.0-80.0); Nucleated Red Blood Cells % 0.2 %; Platelet Count (auto) 305 10^3/uL (140-450); Red Cell Distribution Width 15.9 % (11.8-14.3); White Blood Cell 5.7 10^3/uL (4.4-10.8)
[2024-07-29 07:15] LABS: Chloride 99 mmol/L (98-107); Potassium 3.8 mmol/L (3.5-5.1)
[2024-07-29 07:16] LABS: Anion Gap 12 (5-15); Calcium 10.1 mg/dL (8.7-10.4); Carbon Dioxide 21 mmol/L (20-31)
[2024-07-29 07:21] LABS: BUN/Creatinine Ratio 9.9 (10.0-20.0)
[2024-07-29 07:44] LABS: Blood Urea Nitrogen 51 mg/dL (9-23); Glucose 117 mg/dL (74-106); Sodium 132 mmol/L (136-145)
[2024-07-29 08:10] VITALS: PULSE 98; RESP 16; O2SAT 97
[2024-07-29 09:00] VITALS: BP 97/55; PULSE 98; RESP 18; TEMP 98; O2SAT 91
--- NOTE | 2024-07-29 11:51 | DVHPN2 ---
Progress Note Date Seen: Jul 29, 2024 Has the PT tested + for MRSA If YES, has PT been informed?: No Medical Necessity Reason Pt with a Central, PICC or Fol: No Subjective Patient reports: No new complaints Other Systems: Patient seen and examined by myself today in follow-up Objective vital signs Vital Sign Date Time Temp Pulse Resp B/P (MAP) Pulse Ox O2 Delivery O2 Flow Rate FiO2 07/29/24 09:00 98.0 98 18 97/55 (69) 91 98.0 07/29/24 08:10 Room Air* 0 21 Total Intake and Output 07/28/24 07/28/24 07/29/24 15:00 23:00 07:00 Intake Total 280 ml Balance 280 ml medications Current Medications Medications Dose Ordered Sig/Joe Route Start Time Stop Time Status Last Admin Dose Admin Acetaminophen/ Hydrocodone Bitart 1 tab Q4HP PRN PO 07/26/24 08:15 Ondansetron HCl 4 mg Q4HP PRN IV 07/26/24 08:15 Enoxaparin Sodium 30 mg DAILY SC 07/26/24 10:00 07/28/24 09:02 30 MG Acetaminophen 650 mg Q6HP PRN PO 07/26/24 08:15 07/28/24 09:02 650 MG Morphine Sulfate 2 mg Q4HPRN PRN IV 07/26/24 08:15 07/27/24 18:07 2 MG Diagnostic Test (Pha) 1 strip ACHS 07/26/24 11:30 07/29/24 06:24 1 STRIP Insulin Human Regular ACHS SC 07/26/24 11:30 07/28/24 20:46 2 UNITS Dextrose 50 ml UD PRN IV 07/26/24 08:15 Ertapenem 0.5 gm/ Sodium Chloride 50 ml @ 100 mls/hr DAILY IV 07/27/24 10:00 07/28/24 12:12 100 MLS/HR Tamsulosin HCl 0.4 mg QPM PO 07/26/24 18:00 07/28/24 18:21 0.4 MG Allopurinol 300 mg DAILY PO 07/27/24 10:00 07/28/24 09:02 300 MG Atorvastatin Calcium 20 mg HS PO 07/26/24 22:00 07/28/24 20:45 20 MG Insulin Glargine 10 units HS SC 07/26/24 22:00 07/28/24 20:46 10 UNITS Famotidine 10 mg HS PO 07/27/24 22:00 Hold Pantoprazole Sodium 40 mg DAILY IV 07/27/24 10:00 07/28/24 09:03 40 MG Furosemide 40 mg BIDD IV 07/27/24 18:00 07/29/24 06:26 40 MG Examination: LUNGS:Normal, CVS:Normal, MSK:Normal laboratory and microbiology Laboratory Tests 07/29/24 05:38 Test 07/29/24 05:38 Range/Units Serum Glucose 117 H 74-106 mg/dL Microbiology Date/Time Source Procedure Growth Status 07/26/24 04:15 Blood Blood Culture - Preliminary NO GROWTH AFTER 72 HOURS OF INCUBATION. Resulted Problem List/Assessment/Plan Problem List/Assessment/Plan Acute kidney injury superimposed Chronic Kidney Disease stage IV/V secondary hemodynamic mediated Chronic Kidney Disease sees Dr. Chopra Diabetes mellitus type 2 Neurogenic bladder Urinary retention Urinary tract infection Pyelonephritis Suspect ESBL Hypotension Hyponatremia due to excess H2O Recommendations Hemodialysis after tunneled catheter placement social services manager for outpatient hemodialysis chair time at [facility] dialysis Tapia catheter Strict I&Os CT scan suggested pyelonephritis Kidney ultrasound reported bilateral echogenic kidney and simple cysts Fluid restrictions Furosemide 40 mg IV q.day DC amlodipine due to low blood pressure Renal diet IV antibiotics We will continue to follow Plan discussed with: Patient, Spouse My Orders My Orders Orders - DINORAH MUÑOZ MD Procedure Category Date Status Time * Hardware Supplies Sales Representative CONS 07/28/24 Transmitted Consult * Radiologist Consult CONS 07/28/24 Transmitted 11:57 Obtain Consent For: ORDERS 07/28/24 Transmitted 12:00 DINORAH MUÑOZ MD Jul 29, 2024 11:51
[2024-07-29] MEDS ORDERED: TAMS-35 PO (12:20)
[2024-07-29] MEDS ORDERED: CIPR-173 PO (12:20)
--- NOTE | 2024-07-29 12:24 | DVHDS2 ---
Discharge Summary Date of Admission Jul 26, 2024 at 08:09 Date of Discharge: Jul 29, 2024 Admitting Diagnosis UTI Labs/Diagnostic Data: Laboratory Results Test 07/29/24 12:01 07/29/24 05:38 07/28/24 13:50 07/27/24 16:02 POC Glucose 147 mg/dl (70-106) White Blood Count 5.7 10^3/uL (4.4-10.8) Red Blood Count 4.00 10^6/uL (4.5-5.90) Hemoglobin 12.4 g/dL (13.5-17.5) Hematocrit 38.1 % (41.0-53.0) Mean Corpuscular Volume 95.4 fL (80.0-100.0) Mean Corpuscular Hemoglobin 31.0 pg (28.0-32.0) Mean Corpuscular Hemoglobin Concent 32.5 g/dL (32.0-36.0) Red Cell Distribution Width 15.9 % (11.8-14.3) Platelet Count 305 10^3/uL (140-450) Mean Platelet Volume 7.8 fL (6.9-10.8) Neutrophils (%) (Auto) 52.7 % (37.0-80.0) Lymphocytes (%) (Auto) 29.4 % (10.0-50.0) Monocytes (%) (Auto) 6.2 % (0.0-12.0) Eosinophils (%) (Auto) 10.4 % (0.0-7.0) Basophils (%) (Auto) 1.3 % (0.0-2.0) Neutrophils # (Auto) 3.0 10 ^3/uL (1.6-8.6) Lymphocytes # (Auto) 1.7 10 ^3/uL (0.4-5.4) Monocytes # (Auto) 0.4 10 ^3/uL (0-1.3) Eosinophils # (Auto) 0.6 10 ^3/uL (0-0.8) Basophils # (Auto) 0.1 10 ^3/uL (0-0.2) Nucleated Red Blood Cells 0.2 % Sodium Level 132 mmol/L (136-145) Potassium Level 3.8 mmol/L (3.5-5.1) Chloride Level 99 mmol/L (98-107) Carbon Dioxide Level 21 mmol/L (20-31) Anion Gap 12 (5-15) Blood Urea Nitrogen 51 mg/dL (9-23) Creatinine 5.13 mg/dL (0.700-1.30) Glomerular Filtration Rate Calc 11 mL/min (>90) BUN/Creatinine Ratio 9.9 (10.0-20.0) Serum Glucose 117 mg/dL (74-106) Calcium Level 10.1 mg/dL (8.7-10.4) Prothrombin Time 11.0 sec (9.3-11.8) Prothrombin Time INR 1.04 (0.9-1.15) Activated Partial Thromboplast Time 33.4 SEC (24.5-34.5) Urine Color Brown (Yellow) Urine Clarity Ex.turbid (Clear) Urine pH 6.0 (5.0-9.0) Urine Specific [place] 1.004 (1.001-1.035) Urine Protein 1+ (Negative) Urine Ketones Negative (Negative) Urine Blood 2+ /uL (Negative) Urine Nitrite Negative (Negative) Urine Bilirubin Negative (Negative) Urine Urobilinogen Normal mg/dL (Negative) Urine Leukocyte Esterase 3+ /uL (Negative) Urine RBC 75 /hpf (0 - 3) Urine WBC Clumps Present /hpf (None Seen) Urine Microscopic WBC 645 /HPF (0-3) Urine Squamous Epithelial Cells Few /hpf (<5) Urine Bacteria None seen /hpf (None Seen) Urine Mucus Few (None Seen) Urine Glucose Normal mg/dL (Normal) Test 07/27/24 06:44 07/26/24 11:20 07/26/24 04:15 07/26/24 03:14 Uric Acid 4.6 mg/dL (3.7-9.2) Total Bilirubin 0.3 mg/dL (0.2-1.0) Aspartate Amino Transferase (AST) 17 U/L (13-40) Alanine Aminotransferase (ALT) < 9 U/L (7-40) Alkaline Phosphatase 73 U/L (46-116) Total Protein 7.5 g/dL (5.7-8.2) Albumin 3.8 g/dL (3.2-4.8) Urine Osmolality 209 mOsm/kg Urine Creatinine 50.01 mg/dL (30.0-125.0) Urine Protein/Creatinine Ratio 1.69 Urine Sodium 43 mmol/L (40-220) Urine Total Protein 84.5 mg/dL (1-14) Hemoglobin A1c 7.0 % A1C (<5.7) Lactic Acid Level 1.3 mmol/L (0.4-2.0) Phosphorus Level 5.0 mg/dL (2.4-5.1) Magnesium Level 2.3 mg/dL (1.6-2.6) B-Type Natriuretic Peptide 31.11 pg/mL (0-100) Lipase 73 U/L (12-53) Free Prostate Specific Antigen 0.94 ng/mL (N/A) Percent Free Prostate Specific Ag 39.2 % (.) Prostate Specific Antigen Total 2.4 ng/mL (0.0-4.0) Parathyroid Hormone (Intact) 66.0 pg/mL (18.4-80.1) Vitamin D 25-Hydroxy 36.2 ng/mL (30.0-100) Other Laboratory Tests 07/29/24 05:38 Brief Hx & Hospital Course: Camden Arriaga is an 83-year-old male with past medical history of hypertension, diabetes type 2, CKD, arthritis, frequent UTIs, osteoarthritis, cholecystectomy, and hernia repair who presents to the ED with abdominal pain and weakness. Clare at bedside with Cinthya daughter as well. Family reported that patient has not been walking for the last 2 years due to his arthritis. Also that patient followed up with his PCP 4 months ago and has been having urinary incontinence in his currently in diapers because he is unable to determine when he is voiding. Patient also complaining of right-sided flank pain. Patient was found to have a UTI. Treated with Invanz IV for 2 days. Patient needs to be started on Dialysis however, patient wishes to wait to see Dr. Chopra in the outpatient setting on Wednesday at 0945AM. Patient will be discharged with Loera and Cipro PO. Condition at Discharge: Poor Final Diagnosis/Problems List Acute abdominal pain likely due to acute pyelonephritis Acute complicated UTI Acute urinary retention Likely due to BPH, s/p loera CATA on CKD stage 4 likely hemodynamically mediated /VM Hypertensive heart disease with possible acute diastolic heart failure Discharge Disposition: Home Discharge Instruct/Medications Diet: Renal Activity: Light activity Follow Up/Referral: Dr. Chopra Wednesday at 0945 Medications: Cipro Discharge Statement: "Patient was advised to return to the ER or call 911 if any headaches, dizziness, shortness of breath, chest pain, abdominal pain, bleeding, fevers, or worsening of medical condition. Patient was counseled about treatment plan, medications, possible side effects, patientverbalized understanding. All questions were answered to the best of my ability. This discharge took greater then 30 minutes in planning, reviewing documentation, counseling the patient, and discussing with other team members." ASSESSMENT ASSESSMENT Assessment Date of Service: Jul 29, 2024 Billing Provider: PHILLIP SCHWARZ MD Common Visit Codes: 61058-NRT/OBS DISCH DAY >30min PHILLIP SCHWARZ MD Jul 29, 2024 12:24
[2024-07-29 12:58] VITALS: BP 119/56; PULSE 106; RESP 18; TEMP 98.1; O2SAT 94
--- NOTE | 2024-07-29 13:19 | DVH ---
XY CHEST XRAY 1 VIEW, HISTORY: Procedure COMPARISON: XY CHEST XRAY 1 VIEW on DOS: 07/26/24, XY CHEST XRAY 1 VIEW on DOS: 07/26/24 XY CHEST XRAY 1 VIEW on DOS: 07/26/24, XY CHEST XRAY 1 VIEW on DOS: 07/26/24 TECHNICAL DATA: 1 view of the chest was obtained. FINDINGS: Lines and tubes: None Cardiomediastinal silhouette: normal Pulmonary vasculature: normal Lung expansion: normal Lung airspace: normal Lung interstitium: normal Pleura: normal Pneumothorax: no Bones: Unremarkable Other: no IMPRESSION: No acute intrathoracic abnormality.
[2024-07-29 14:05] VITALS: BP 122/59; PULSE 78; TEMP 36.7
[2024-07-31 11:24] LABS: Hepatitis A Total Antibody Positive (Negative); Hepatitis B Surface Antigen Negative (Negative); Hepatitis C Antibody Negative (Negative)
[2024-07-31 11:26] LABS: Hepatitis B Surface Antibody Positive (Negative)
[2024-07-31 11:31] LABS: Hepatitis B Core Total AB Positive (Negative)
== END 2024-07-29 17:50 | disposition home or self-care (01) | DRG 393 ==
LOC: EDBD 03:28 → ER 03:28 → OVERFLOW 08:09 → WEST WING 18:43
PROVIDERS: ADMIT Internal Medicine; ATTEND Internal Medicine
DX: K40.90 Unilateral inguinal hernia, without obstruction or gangrene, not specified as recurrent (principal); I50.33 Acute on chronic diastolic (congestive) heart failure; K85.90 Acute pancreatitis without necrosis or infection, unspecified; N17.0 Acute kidney failure with tubular necrosis; N10 Acute pyelonephritis; E87.1 Hypo-osmolality and hyponatremia; I13.0 Hypertensive heart and chronic kidney disease with heart failure and stage 1 through stage 4 chronic kidney disease, or unspecified chronic kidney disease; N18.4 Chronic kidney disease, stage 4 (severe); N39.0 Urinary tract infection, site not specified; D64.9 Anemia, unspecified; K42.9 Umbilical hernia without obstruction or gangrene; E11.22 Type 2 diabetes mellitus with diabetic chronic kidney disease; N31.9 Neuromuscular dysfunction of bladder, unspecified; N40.1 Benign prostatic hyperplasia with lower urinary tract symptoms; R33.8 Other retention of urine; K44.9 Diaphragmatic hernia without obstruction or gangrene; N28.1 Cyst of kidney, acquired; Z79.2 Long term (current) use of antibiotics; Z90.49 Acquired absence of other specified parts of digestive tract; Z79.899 Other long term (current) drug therapy; Z83.3 Family history of diabetes mellitus
CPT/HCPCS: 36415; 71045; 74176; 76775; 80048; 80053; 81001; 82306; 82570; 82962; 83036; 83605; 83690; 83735; 83880; 83935; 83970; 84100; 84154; 84156; 84300; 84550; 85025; 85610; 85730; 86704; 86706; 86708; 86803; 86850; 86900; 86901; 87040; 87340; 93306; G0378; J1335; J1815; J2470; J3490

== ENCOUNTER 2024-09-27 07:37 | Emergency (ER) | payer OTHER, MEDICAID ==
[~2024-09-27] VITALS: Ht 160 cm; Wt 55.0 kg
[~2024-09-27 07:37] MED LIST changes: -AMLO1TAB23 PO; +CHLO25TA2 PO; +FURO1TAB31 PO; +POTA-36 PO; -SIMV40TA18 PO
[2024-09-27 08:02] VITALS: BP 131/60; PULSE 73; RESP 14; TEMP 97.7; O2SAT 95
--- NOTE | 2024-09-27 08:14 | ED.PDOC ---
General HPI Comments A 84-year-old male with a past medical history of hypertension, diabetes type 2, CKD, arthritis, frequent UTIs, osteoarthritis, presents to the emergency department with a chief complaint of Tapia catheter removal onset today (09/27/24). Patient states he has been experiencing discomfort due to Tapia catheter, is requesting for removal. Patient will follow up with Urologist, Dr. Wheeler. He finished course of antibiotics, Cipro. He was discharged from [facility] on 07/29/24, with Tapia catheter in place. No other symptoms or modifying factors present at this time. Discharge summary from 07/29/24 83-year-old male with past medical history of hypertension, diabetes type 2, CKD, arthritis, frequent UTIs, osteoarthritis, cholecystectomy, and hernia repair who presents to the ED with abdominal pain and weakness. Clare at bedside with Cinthya daughter as well. Family reported that patient has not been walking for the last 2 years due to his arthritis. Also that patient followed up with his PCP 4 months ago and has been having urinary incontinence in his currently in diapers because he is unable to determine when he is voiding. Patient also complaining of right-sided flank pain. Patient was found to have a UTI. Treated with Invanz IV for 2 days. Patient needs to be started on Dialysis however, patient wishes to wait to see Dr. Chopra in the outpatient setting on Wednesday at 0945AM. Patient will be discharged with Tapia and Cipro PO. Denies fevers, chills, night sweats, flank pain, nausea/vomiting Denies Ab pain Denies rashes Denies penile discharge, hematuria, dysuria Chief Complaint: Urinary Time Seen by : 08:00 Primary Care Provider: BRAN Reviewed notes: Nurses Notes, Medications, Allergies Allergies: Coded Allergies: NO KNOWN ALLERGIES (Unverified , 04/30/19) Home Meds Active Scripts Ciprofloxacin Hcl (Cipro) 500 Mg Tab, 1 TAB PO BID, #14 TAB Prov:PHILLIP SCHWARZ MD 07/29/24 Tamsulosin Hcl (Flomax) 0.4 Mg Cap, 0.4 MG PO QPM for 30 Days, #30 CAP Prov:PHILLIP SCHWARZ MD 07/29/24 Reported Medications Furosemide (Lasix) 40 Mg Tab, 40 MG PO BID, TAB 07/26/24 Chlorthalidone (Chlorthalidone) 25 Mg Tab, 25 MG PO, TAB 07/26/24 Potassium Chloride (POTASSIUM CHLORIDE CR) 10 Meq Tb, 1 TAB PO DAILY, #30 TAB 5 Refills 07/26/24 Insulin Glargine (Lantus) 100 Unit/Ml Inj, 100 UNIT SC DAILY, INJ 06/23/22 Pioglitazone Hydrochloride (ACTOS TABLET) 30 Mg Tb, 30 MG GT DAILY, TAB 06/23/22 Allopurinol (Allopurinol) 300 Mg Tab, 300 MG PO DAILY, TAB 06/23/22 Metoprolol Tartrate (Metoprolol Tartrate) 50 Mg Tab, 50 MG PO BID for 30 Days, MG 06/23/22 Information Source: Patient Mode of Arrival: Wheelchair Severity: Moderate Timing: Days Duration: Since onset Prehospital treatment: None Onset: Spontaneous History of: UTI Location: None Penile discharge: None Modifying factors: None Past Medical History PAST MEDICAL HISTORY: Arthritis, CKF, DM, HTN, UTI'S Surgical History: Cholecystectomy, Hernia Repair Family History Family History: Family hx of DM Social History Smoker: Non-Smoker Alcohol: Denies ETOH Use Drugs: Denies Drug Use Lives In: Home All Other Systems: Reviewed and Negative (as per HPI) Physical Exam General Appearance: No Apparent Distress, Normal HEENT: Normal ENT Inspection, Pharynx Normal, TMs Normal Neck: Full Range of Motion, Non-Tender, Normal, Normal Inspection Respiratory: Chest Non-Tender, Lungs Clear, No Accessory Muscle Use, No Respiratory Distress, Normal Breath Sounds Cardiovascular: No Edema, No JVD, No Murmur, No Gallop, Normal Peripheral Pulses, Regular Rate/Rhythm Breast Exam: Deferred Gastrointestinal: No Organomegaly, Normal Bowel Sounds, Other (mild suprapubic pain to palpation with no guarding) Genitalia: Penis (penile shaft normal, no erythema or discharge/swelling noted. No signs of leaking catheter ) Pelvic: Deferred Rectal: Deferred Extremities: No calf tenderness, Normal capillary refill, Normal inspection, Normal range of motion, Non-tender, No pedal edema Musculoskeletal : Apperance: Normal Neurologic: Alert, bus boy II-XII nml as Tested, No Motor Deficits, Normal Affect, Normal Mood, No Sensory Deficits Cerebellar Function: Normal Reflexes: Normal Skin: Dry, Normal Color, Warm Lymphatic: No Adenopathy Was a procedure done? Was a procedure done?: No X-Ray, Labs, Meds, VS Vital Signs Date Time Temp Pulse Resp B/P (MAP) Pulse Ox O2 Delivery O2 Flow Rate FiO2 09/27/24 08:02 73 14 95 Room Air 09/27/24 08:02 97.7 73 14 131/60 (83) 95 97.7 09/27/24 07:51 97.7 73 16 131/60 (83) 95 97.7 X-Ray, Labs, Meds, VS Comment A 84-year-old male with a past medical history of hypertension, diabetes type 2, CKD, arthritis, frequent UTIs, osteoarthritis, presents to the emergency department with a chief complaint of Tapia catheter removal onset today (09/27/24). Patient arrives alert and oriented, ABC's intact, afebrile, vital signs stable, saturating well in room air Additional MDM Review of External, Non-ED records: External records reviewed. Discussion with independent historian (EMS, family) history obtained from the patient/parents (if applicable) at bedside Chronic conditions affecting care: DM, HTN, arthritis, frequent UTI, CKD, osteoarthritis Social determinants of health affecting care: None Consideration of admission (observation or admission): I considered escalation of care to admission for this patient, however given the reassuring workup, the patient is safe for outpatient management. Time of 1ST Reevaluation: 08:30 Reevaluation 1ST: Improved Patient Education/Counseling: Diagnosis, Treatment Family Education/Counseling: Diagnosis, Treatment Departure 1 Departure Time of Disposition: 08:42 Impression: Primary Impression: Encounter for Tapia catheter removal Disposition: 01 HOME / SELF CARE / HOMELESS Condition: Fair Discharged With: Spouse Critical Care Note Critical Care Time?: No Stability Stability form required: No Heart Score Heart Score: Heart Score Response (Comments) Value History N/A 0 EKG N/A 0 Age N/A 0 Risk Factors N/A 0 Troponin N/A 0 Total 0 I personally scribed for ROJAS DORANTES NP ([email or web address]) on 09/27/24 at 08:14. Electronically submitted by Ailyn Eden ([email or web address]). I personally scribed for ROJAS DORANTES NP ([email or web address]) on 09/27/24 at 09:01. Electronically submitted by Ailyn Eden ([email or web address]). I personally scribed for ROJAS DORANTES NP ([email or web address]) on 09/27/24 at 09:02. Electronically submitted by Ailyn Eden ([email or web address]). ROJAS DORANTES NP Sep 27, 2024 08:14
== END 2024-09-27 09:04 | disposition home or self-care (01) ==
LOC: ER 07:37
DX: Z46.6 Encounter for fitting and adjustment of urinary device (principal); M19.90 Unspecified osteoarthritis, unspecified site; I12.9 Hypertensive chronic kidney disease with stage 1 through stage 4 chronic kidney disease, or unspecified chronic kidney disease; E11.22 Type 2 diabetes mellitus with diabetic chronic kidney disease; N18.9 Chronic kidney disease, unspecified; Z98.890 Other specified postprocedural states; Z90.49 Acquired absence of other specified parts of digestive tract; Z79.899 Other long term (current) drug therapy